=== PATIENT | female | born 1970 | race Caucasian/White ===

== ENCOUNTER 2021-12-25 01:00 | Day surgery (SDC) | payer OTHER, SELFPAY ==
--- NOTE | 2021-12-22 13:42 | SUR.PREOP ---
Report to the Outpatient Waiting Room, entrance under the green pavilion located off [facility], at time 0845 12/25/21. OR Time: 1045 - You and your visitor will be asked a series of questions to screen for COVID 19 for your protection. - Only one visitor is allowed at this time. - The patient visitor is requested to leave or wait in car when not with patient. - A mask is required within the hospital. Patients may have clear liquids (water, carbonated beverages, clear teas, apple juice) until 3 hours prior to surgery with a maximum of 20 ounces. - No food from midnight until time of surgery Take the following medications with a SIP of water the morning of surgery: xanax and if needed oxycodone. Medications to discontinue per physician probiotic Date to take last dose12/22 Please no make-up, nail japanese, hairspray, perfume, deodorant, or body powder the day of surgery. No jewelry (including any body piercings) or valuables the day of surgery, leave them at home. Please take a shower or bath the night before, or the morning of, surgery with an antibacterial soap. Wear comfortable, loose fitting clothing. Children are encouraged to wear pajamas. - Jewelry must be removed prior to entering the operating room. Rings and piercings that are not removed may be cut off. - The hospital will not accept responsibility for valuables. - Please leave all valuables, including medications, at home the day of surgery. If you are going home after surgery, a licensed log driver must drive you home. - NO public transportation without another adult. - We recommend that an adult stay with you for 24 hours following discharge. - We also recommend that you do not drive, make important decision, drink alcoholic beverages, or take any drugs that were not prescribed by your health care provider for at least 24 hours after your discharge time. For Pediatric surgeries, we recommend two adults accompany the child home (only one inside the building at this time). Follow any additional instructions given to you from your surgeon. If you or anyone in your household have experienced Covid symptoms in the past week, please notify your surgeon or the nurse liaison at the phone number below for possible testing. Telephone instructions given to Patient Audrey and asked if any additional questions and then verbalized understanding. Patient advised to call surgeon office or pre surgery nurse liaison [phone] if any additional questions.
[2021-12-22 13:57] VITALS: BMI 32.3
--- NOTE | 2021-12-24 09:56 | PM.IMHP ---
H&P: HPI History of Present Illness Date/Time: 12/24/21 09:56 51-year-old 3 para 1999 female presents for evaluation of abnormality noted on ultrasound. She was seen for well-woman exam 2 months ago at which time she complained of some vague pelvic discomfort and adnexal discomfort. Ultrasound ordered and showed significantly thickened endometrium at 17mm. She also is currently on tamoxifen therapy due to breast cancer though she has not had any abnormal bleeding or any bleeding at all. Her discomfort has resolved but we will proceed with hysteroscopy uterine curettings to remove polyp and/or would ever thickened tissue is in the cavity. 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, had chemotherapy Bronchitis Complication of breast implant Diverticulosis Dizziness Ectopic 1994 Encounter for insertion of mirena IUD 02/01/12 insertion 07/05/12 removal Gall stones High blood cholesterol Intractable low back pain IUD (intrauterine device) in place Lumbar radiculopathy Ovarian mass 2011 Peripheral neuropathy Pneumonia Vertigo Surgical History Surgical History H/O bilateral mastectomy 2014 right (prophylaxis), left cancer with metastasis to lymph nodes H/O hernia repair 2010 History of ankle surgery History of cardiac catheterization History of removal of ovarian cyst 10/27/11 mature cystic teratoma History of salpingectomy 10/27/11 LSO--mature cystic teratoma Hx of breast implants, bilateral 02/06/15 Hx of cholecystectomy 08/14/15 Family History Family History Mother Hypertension Diabetes mellitus Family history of diabetes mellitus in first degree relative Lung tumor Father Family history of diabetes mellitus in first degree relative Family history of heart disease in male family member before age 55 Sibling Family history of malignant neoplasm of cervix sister Other Tonsil cancer maternal aunt Social History Social History Years smoked: 37 Smoking status: Current every day smoker Tobacco type: cigarettes Second hand tobacco smoke exposure: Yes Alcohol intake: current Drinks per week: 6 Substance use: never Substance use type: does not use Living arrangements: with family Additional living arrangements comments: daughter Gender identity (if verbalized by the patient): Female Sexual Orientation (if Verbalized by the Patient): Straight or Heterosexual Spiritual care concerns: No Meds Home Medications and Allergies Home Medications Medication Instructions Recorded Confirmed Type oxycodone-acetaminophen 1 tablet PO Q6H PRN #14 tablet 07/27/19 12/22/21 Rx cyclobenzaprine 10 mg PO Q8H #10 tablet 08/13/19 12/22/21 Rx tamoxifen 20 mg tablet 20 mg PO DAILY 09/24/21 12/22/21 History albuterol sulfate 90 inh INHALATION PRN 12/22/21 12/22/21 History alprazolam 0.5 mg PO TID PRN 12/22/21 12/22/21 History lactobacillus combination no.4 3,000 mmu cells PO DAILY 12/22/21 12/22/21 History [Probiotic] Allergies Allergy/AdvReac Type Severity Reaction Status Date / Time celecoxib [From Celebrex] Allergy Unknown unknown Verified 12/22/21 13:23 tramadol [From Ultram] Allergy Unknown unknown Verified 12/22/21 13:23 Exam Const: General: cooperative, healthy appearing and comfortable Resp: Effort & Inspection: normal respiratory effort Auscultation: clear to auscultation bilaterally Cardio: Rate: regular rate Rhythm: regular rhythm GI: Inspection: normal to inspection Auscultation: normal bowel sounds : Externa
--- NOTE | 2021-12-25 07:23 | WPDHPUPDATE1 ---
History and Physical Update Update Date/Time: 12/25/21 07:23 History and Physical has been reviewed, including an updated exam of the patient. There are NO changes in the patient's condition. Risks, benefits, and alternatives have been discussed and questions answered. Patient agrees to proceed with procedure.
[2021-12-25] MEDS: ACETAMINOPHEN 500 MG TABLET 1000 MG PO (09:28)
[2021-12-25 09:30] VITALS: BP 113/81; PULSE 98; RESP 18; TEMP 36.3; O2SAT 94
[2021-12-25] MEDS: LACTATED RINGERS 1,000 ML 30 ML IV CONT (09:45)
--- NOTE | 2021-12-25 09:58 | WPDANESEPPF ---
Anes - Initial Pre Proc Eval Procedure: Operation Date: 12/25/21 10:45 Proposed Procedures p Hysteroscopy, Dilation and Curettage - Wenceslao Ricardo MD Date/Time: 12/25/21 09:58 Surgeon: Wenceslao Ricardo MD Pre Op Diagnosis: endometrial hyperplasia Patient Data Age: 51 Gender: F Height: 1.68 m Weight: 90.9 kg Allergies Allergy/AdvReac Type Severity Reaction Status Date / Time celecoxib [From Celebrex] Allergy Unknown unknown Verified 12/22/21 13:23 tramadol [From Ultram] Allergy Unknown unknown Verified 12/22/21 13:23 Home Medications Medication Instructions Recorded Confirmed Type oxycodone-acetaminophen 1 tablet PO Q6H PRN #14 tablet 07/27/19 12/22/21 Rx cyclobenzaprine 10 mg PO Q8H #10 tablet 08/13/19 12/22/21 Rx tamoxifen 20 mg tablet 20 mg PO DAILY 09/24/21 12/22/21 History albuterol sulfate 90 inh INHALATION PRN 12/22/21 12/22/21 History alprazolam 0.5 mg PO TID PRN 12/22/21 12/22/21 History lactobacillus combination no.4 3,000 mmu cells PO DAILY 12/22/21 12/22/21 History [Probiotic] Patient hx anesthesia problems: none Family hx anesthesia problems: none Results Review: All pre-operative results and documents have been reviewed as part of the pre-operative evaluation. 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, had chemotherapy Bronchitis Complication of breast implant Diverticulosis Dizziness Ectopic 1994 Encounter for insertion of mirena IUD 02/01/12 insertion 07/05/12 removal Gall stones High blood cholesterol Intractable low back pain IUD (intrauterine device) in place Lumbar radiculopathy Ovarian mass 2011 Peripheral neuropathy Pneumonia Vertigo Surgical History Surgical History H/O bilateral mastectomy 2014 right (prophylaxis), left cancer with metastasis to lymph nodes H/O hernia repair 2011 History of ankle surgery History of cardiac catheterization History of removal of ovarian cyst 10/27/11 mature cystic teratoma History of salpingectomy 10/27/11 LSO--mature cystic teratoma Hx of breast implants, bilateral 02/06/15 Hx of cholecystectomy 08/14/15 Family History Family History Mother Hypertension Diabetes mellitus Family history of diabetes mellitus in first degree relative Lung tumor Father Family history of diabetes mellitus in first degree relative Family history of heart disease in male family member before age 55 Sibling Family history of malignant neoplasm of cervix sister Other Tonsil cancer maternal aunt Social History Social History Years smoked: 37 Smoking status: Current every day smoker Tobacco type: cigarettes Second hand tobacco smoke exposure: Yes Alcohol intake: current Drinks per week: 6 Substance use: never Substance use type: does not use Living arrangements: with family Additional living arrangements comments: daughter Gender identity (if verbalized by the patient): Female Sexual Orientation (if Verbalized by the Patient): Straight or Heterosexual Spiritual care concerns: No Anes - Eval Final PreProcedure Day of Procedure 12/25/21 09:58 Patient weight: obese Heart: regular rate and rhythm Lungs: decreased breath sounds Airway: Mallampati scale class II Neurological: alert and oriented Last oral intake: >/= 8 hours ASA classification: III Emergent: no Anesthetic plan: proceed Anesthesia type and monitoring: general GIVS and standard monitoring Results Review: All pre-operative results and documents have been reviewed as part of the pre-operative evaluation. Informed Consent:
[2021-12-25 11:00] VITALS: BP 110/72; PULSE 80; RESP 20; O2SAT 96
--- NOTE | 2021-12-25 11:01 | W.PM.PROC2 ---
Procedure Note - Detailed Date of Procedure 12/25/21 Pre-op Diagnosis endometrial hyperplasia Post-op Diagnosis Same (With endometrial polyp) Procedure Performed 1. Hysteroscopy 2 polypectomy Surgeon Wenceslao Ricardo MD Anesthesia MAC Indications Endometrial hypertrophy on tamoxifen therapy Findings 1 large endometrial polyp noted the rest the cavity was atrophic Description of Procedure Patient prepped usual manner this procedure. Cervix was dilated the hysteroscope to placed which did reveal findings of polyp as noted above. Using the MyoSure instrument polyp was removed in its entirety. At this point the entire cavity was normal and atrophic. Patient tolerated the procedure well sent to recovery room in stable condition. Estimated Blood Loss 25 Drains No Packing No Pathology Yes Complications No immediate complications Condition Stable Disposition PACU [facility] Billing Surgery - Charge Forward: Surgery Billing
[2021-12-25 11:30] VITALS: BP 109/75; PULSE 71
[2021-12-25] MEDS: fentaNYL CITRATE INJ (*CRX) 100 MCG/2 ML VIAL 25 MCG IV PUSH ×2 (11:40→11:43)
[2021-12-25] MEDS: oxyCODONE HCL (*CRX) 5 MG TAB IR PO (11:40)
[2021-12-25 12:00] VITALS: BP 102/74; PULSE 74; RESP 16
== END 2021-12-25 12:20 | disposition home or self-care (01) ==
PROVIDERS: PCP Family Medicine; Visit Provider Obstetrics & Gynecology
PROC: 0U5B8ZZ Destruction of Endometrium, Via Natural or Artificial Opening Endoscopic (ICD-10-PCS; CPT 58563; principal; 2021-12-25 10:45)
DX: N84.0 Polyp of corpus uteri (principal); E78.00 Pure hypercholesterolemia, unspecified; G62.9 Polyneuropathy, unspecified; F41.9 Anxiety disorder, unspecified; J45.909 Unspecified asthma, uncomplicated; Z85.3 Personal history of malignant neoplasm of breast; Z92.21 Personal history of antineoplastic chemotherapy; Z85.89 Personal history of malignant neoplasm of other organs and systems; Z79.51 Long term (current) use of inhaled steroids; Z79.810 Long term (current) use of selective estrogen receptor modulators (SERMs); F17.210 Nicotine dependence, cigarettes, uncomplicated; E66.9 Obesity, unspecified; Z68.32 Body mass index [BMI] 32.0-32.9, adult
CPT/HCPCS: 58558; 88305; A9270; J2250; J3010; J7030; J7120

== ENCOUNTER 2023-03-02 01:34 | Emergency (ER) | payer OTHER, SELFPAY ==
[2023-03-02] VITALS (18 sets, daily range): BP systolic 97–119; BP diastolic 63–82; PULSE 70–86; RESP 14–21; TEMP 36.6; O2SAT 93–96
--- NOTE | ~2023-03-02 | XR_ITS ---
Clinical Indication: Chest pain PA and lateral views of the chest: Comparison: 07/03/2019 Findings: Stable calcified left upper lobe pulmonary nodule versus excrescence of the anterior left f irst rib. Lungs are otherwise clear. Cardiomediastinal silhouette is within normal limits. Bones and soft tissues are unremarkable. Impression: No significant abnormality seen. Reviewed, dictated and finalized at location . Impression: No significant abnormality seen.
--- NOTE | ~2023-03-02 | CT_ITS ---
Clinical Indication: Chest pain, abdominal pain CT Scan of the Chest, Abdomen, and Pelvis with Contrast: Technique: Contiguous sections were acquired throughout the chest, abdomen, and pelvis after intraven ous administration of 100 cc of Omnipaque 350. Dose reduction technique was used on this scan by beatriz louiseing automated exposure control and iterative reconstruction technique. The dose-length product (DL P) was 1489.01 mGy-cm. COMPARISON: 09/19/2017 Findings: There is no evidence of any significant mediastinal, hilar or axillary lymphadenopathy. The mediastin al soft tissues appear normal. No pulmonary embolus seen. No aortic aneurysm or dissection. There is no evidence of pleural or pericardial effusion. There is a 1.6 cm vague groundglass opacities in the right upper lobe (axial image 41). Probable diffuse fatty infiltration of liver. Cholecystectomy clips are present. The spleen, pancreas , adrenals and kidneys are within normal limits. No evidence of aortic aneurysm. No lymphadenopathy . No bowel obstruction or bowel wall thickening. There normal appendix. Urinary bladder is unremarkable. No adnexal mass seen. No ascites. Impression: 1.6 cm amorphous groundglass opacity in the right upper lobe. Findings could reflect focal pneumonia. Consider follow-up exam as indicated. Probable diffuse fatty infiltration of liver. No other significant findings. Reviewed, dictated and finalized at [facility]. Impression: 1.6 cm amorphous groundglass opacity in the right upper lobe. Findings could re flect focal pneumonia. Consider follow-up exam as indicated. Probable diffuse fatty infiltration of liver. No other significant findings.
--- NOTE | 2023-03-02 01:41 | ECG_ITS ---
Measurements Intervals Verner Rate: 91 P: 70 ND: 157 QRS: 66 QRSD: 97 T: 71 QT: 355 QTc: 438 Interpretive Statements SINUS RHYTHM BASELINE ARTIFACT- I, II, III, AVR, AVL, AVF, V4-V6 NORMAL ECG NO PREVIOUS ECG AVAILABLE FOR COMPARISON Electronically Signed On 03-02-2023 6:40:31 CDT by Augustin Fernandes D.O.
[2023-03-02 02:03] LABS: Basophils Absolute Auto 0.1 K/mm3 (0.0-0.1); Basophils Percent Auto 0.4 % (0.2-1.2); Eosinophils Absolute Auto 0.3 K/mm3 (0-0.3); Eosinophils Percent Auto 2.2 % (0-4.4); Hematocrit 40.4 % (37.0-47.0); Hemoglobin 13.9 g/dL (12.0-15.0); Immature Granulocyte Absolute 0.03 K/mm3 (0.00-0.031); Immature Granulocyte Percent A 0.3 % (0-0.5); Lymphocytes Absolute Auto 2.96 K/mm3 (0.9-3.2); Mean Corpuscular HGB Conc 34.4 g/dl (32-36); Mean Corpuscular Hemoglobin 32.3 pg (26-34); Mean Corpuscular Volume 93.7 fl (80-100); Mean Platelet Volume 9.9 fl (7.4-10.4); Monocytes Absolute Auto 0.8 K/mm3 (0.1-0.6); Monocytes Percent Auto 7.4 % (2.6-8.5); Neutrophils Absolute Auto 7.3 K/mm3 (1.3-6.7); Neutrophils Percent Auto 63.7 % (45.5-73.1); Platelet Count Result 264 k/mm3 (150-375); Red Blood Count 4.31 M/mm3 (4.2-5.4); Red Cell Distribution Width 12.6 % (11.5-14.5); White Blood Count 11.4 K/mm3 (4.5-10.0)
[2023-03-02 02:16] LABS: Alanine Aminotransferase 18 U/L (6-35); Albumin Level 4.1 g/dL (3.5-5.1); Alkaline Phosphatase 73 U/L (38-126); Anion Gap 6 mmol/L (8-16); Aspartate Amino Transferase 20 U/L (14-36); Bilirubin,Total 0.3 mg/dL (0.2-1.3); Blood Urea Nitrogen 12 mg/dL (7-17); Calcium 9.3 mg/dL (8.4-10.2); Carbon Dioxide 29 mmol/L (22-30); Chloride 102 mmol/L (98-107); Estimated CRCL calculation 83 ml/min; Estimated Glomerular Filt Rate > 60; Glucose 115 mg/dL (65-110); Lipase 57 U/L (23-300); Potassium 3.7 mmol/L (3.4-5.0); Sodium 137 mmol/L (137-145)
[2023-03-02 02:24] LABS: INR 0.9; Prothrombin Time 12.4 Seconds (11.1-14.7)
[2023-03-02 02:25] LABS: Partial Thromboplastin Time 29.7 SECONDS (22.3-36.8)
[2023-03-02 02:28] LABS: Troponin I < 0.012 ng/mL (0.000-0.034)
--- NOTE | 2023-03-02 03:19 | ED.CHESTPAIN ---
HPI - Chest Pain General Chief Complaint: Chest Pain Stated Complaint: chest pain Time Seen by Provider: 03/02/23 02:24 History of Present Illness HPI narrative: Is a 53-year-old female with past history of breast cancer and hiatal hernia, who presents emergency department complaining of chest pain. The patient states she was at rest, seated when she felt sudden onset crushing substernal chest pain that radiated to her back and abdomen. At the time her pain was rated 10/10 and lasted approximately 30 minutes. At the time she took her blood pressure and was noted to be in the 130s over 70s with a heart rate in the low 100s. The patient states her normal pressures running in the low 100s. With pain resolution, her pressure decreased to the 100s over 70s with a heart rate in the 80s. She denies any recent trauma but notes she did have some bilateral lower extremity weakness while experiencing the pain. Related Data Home Medications Medication Instructions Recorded Confirmed albuterol sulfate 90 mcg/actuation 90 inh inhalation PRN 12/22/21 02/01/23 aerosol inhaler alprazolam 0.5 mg tablet 0.5 mg PO TID PRN Anxiety 12/22/21 02/01/23 Allergies Allergy/AdvReac Type Severity Reaction Status Date / Time celecoxib [From Celebrex] Allergy Unknown unknown Verified 02/01/23 10:07 tramadol [From Ultram] Allergy Unknown unknown Verified 02/01/23 10:07 Review of Systems Review of Systems: CONSTITUTIONAL: Denies fever, chills, or sweats. CARDIOVASCULAR: Chest pain denies palpitations, or edema. RESPIRATORY: Denies cough or dyspnea. GASTROINTESTINAL: Abdominal pain, nausea denies vomiting, or diarrhea. GENITOURINARY: Denies dysuria or hematuria. SKIN: Denies rash or itching. MUSCULOSKELETAL: Back pain denies joint pain, or myalgia. NEUROLOGIC: Denies headache, numbness, dizziness, or weakness. PSYCHIATRIC: Denies anxiety or depression. 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, had chemotherapy Bronchitis Complication of breast implant Diverticulosis Dizziness Ectopic 1994 Encounter for insertion of mirena IUD 02/01/12 insertion 07/05/12 removal Gall stones High blood cholesterol Intractable low back pain IUD (intrauterine device) in place Lumbar radiculopathy Ovarian mass 2011 Peripheral neuropathy Pneumonia Vertigo Surgical History Surgical History H/O bilateral mastectomy 2014 right (prophylaxis), left cancer with metastasis to lymph nodes H/O hernia repair 2010 History of ankle surgery History of cardiac catheterization History of gynecological procedure (12/25/21) Hscope D&C / Polypectomy History of removal of ovarian cyst 10/27/11 mature cystic teratoma History of salpingectomy 10/27/11 LSO--mature cystic teratoma Hx of breast implants, bilateral 02/06/15 Hx of cholecystectomy 08/14/15 Family History Family History Mother Hypertension Diabetes mellitus Family history of diabetes mellitus in first degree relative Lung tumor Father Family history of diabetes mellitus in first degree relative Family history of heart disease in male family member before age 55 Sibling Family history of malignant neoplasm of cervix sister Other Tonsil cancer maternal aunt Social History Social History Years smoked: 37 Smoking status: Current every day smoker Tobacco type: cigarettes Second hand tobacco smoke exposure: Yes Alcohol intake: current Drinks per week: 6 Substance use: never Substance use type: does not use Lack of Transportation: No Lack of Food: Never True Current Talha
[2023-03-02] MEDS: BELLADONNA ALK/PHENOB ELIX 10 ML, MAG HYDROX/ALUMINUM HYD/SIMETH 30 ML, LIDOCAINE HCL 2... PO (03:31)
[2023-03-02] MEDS: ONDANSETRON INJ 4 MG/2 ML VIAL IV PUSH (03:32)
[2023-03-02] MEDS: DICYCLOMINE HCL 10 MG CAPSULE PO (03:32)
[2023-03-02 05:15] LABS: Troponin I < 0.012 ng/mL (0.000-0.034)
== END 2023-03-02 05:49 | disposition home or self-care (01) ==
PROVIDERS: Emergency Provider Preventive Medicine Aerospace Medicine; PCP Family Medicine
DX: R07.89 Other chest pain (principal); J45.909 Unspecified asthma, uncomplicated; E78.00 Pure hypercholesterolemia, unspecified; G62.9 Polyneuropathy, unspecified; F41.9 Anxiety disorder, unspecified; F17.210 Nicotine dependence, cigarettes, uncomplicated; Z85.3 Personal history of malignant neoplasm of breast; Z92.21 Personal history of antineoplastic chemotherapy; Z87.01 Personal history of pneumonia (recurrent); Z90.49 Acquired absence of other specified parts of digestive tract; Z98.82 Breast implant status; R91.8 Other nonspecific abnormal finding of lung field
CPT/HCPCS: 36415; 71046; 71275; 74174; 80053; 83690; 84484; 85025; 85610; 85730; 93005; 96374; 99284; A9270; J2405; Q9967

== ENCOUNTER 2024-01-18 09:53 | Outpatient (CLI) | payer OTHER, SELFPAY ==
--- NOTE | ~2024-01-18 | US_ITS ---
Pelvic ultrasound. Clinical History: Pelvic pain Technique: Realtime transabdominal and transvaginal scanning of the pelvis was performed. Color flow Doppler and Doppler spectral analysis were performed. Findings: The uterus is anteverted, and measures 9.3 x 5.4 x 6.8 cm. The endometrial stripe has a th ickness of approximately 10 mm. Hypoechoic ill-defined posterior wall fibroid measures 1.6 cm in diam eter.. The right ovary measures 2.6 x 2.0 x 1.3 cm. There is a 4 mm hyperechoic focus within the right ovary .. The left ovary is not visualized. No significant left ovarian or adnexal mass is seen. There is no evidence of free fluid in the cul de sac. Impression: 4 mm hyperechoic focus in the right ovary could reflect the presence of a very small dermoid. Small uterine fibroid, as above. Left ovary not seen. Reviewed, dictated and finalized at [facility]. Impression: 4 mm hyperechoic focus in the right ovary could reflect the presence of a very small dermoid. Small uterine fibroid, as above. Left ovary not seen.
== END 2024-01-18 09:54 | disposition home or self-care (01) ==
PROVIDERS: PCP Family Medicine; Visit Provider Obstetrics & Gynecology
DX: R30.0 Dysuria (principal); R10.2 Pelvic and perineal pain; D25.9 Leiomyoma of uterus, unspecified
CPT/HCPCS: 76830; 76856; 87086

== ENCOUNTER 2024-10-05 19:25 | Emergency (ER) | payer OTHER, SELFPAY ==
[2024-10-05 19:30] VITALS: BP 108/58; PULSE 93; RESP 20; TEMP 36.8; O2SAT 95
[2024-10-05 21:32] VITALS: BP 108/70; PULSE 105; RESP 20; TEMP 36.7; O2SAT 95
[2024-10-05 21:51] LABS: Basophils Percent Auto 0.3 % (0.2-1.2); Eosinophils Absolute Auto 0.1 K/mm3 (0-0.3); Hematocrit 44.1 % (37.0-47.0); Hemoglobin 15.1 g/dL (12.0-15.0); Immature Granulocyte Absolute 0.05 K/mm3 (0.00-0.031); Immature Granulocyte Percent A 0.5 % (0-0.5); Lymphocytes Absolute Auto 0.75 K/mm3 (0.9-3.2); Mean Corpuscular HGB Conc 34.2 g/dl (32-36); Mean Corpuscular Hemoglobin 32.1 pg (26-34); Mean Corpuscular Volume 93.8 fl (80-100); Monocytes Absolute Auto 0.9 K/mm3 (0.1-0.6); Monocytes Percent Auto 9.4 % (2.6-8.5); Neutrophils Absolute Auto 7.6 K/mm3 (1.3-6.7); Neutrophils Percent Auto 80.8 % (45.5-73.1); Platelet Count Result 243 k/mm3 (150-375); Red Cell Distribution Width 12.8 % (11.5-14.5); White Blood Count 9.4 K/mm3 (4.5-10.0)
[2024-10-05 22:02] LABS: Alanine Aminotransferase 17 U/L (6-35); Albumin Level 4.3 g/dL (3.5-5.1); Alkaline Phosphatase 71 U/L (38-126); Anion Gap 8 mmol/L (4-12); Aspartate Amino Transferase 19 U/L (14-36); Bilirubin,Total 0.5 mg/dL (0.2-1.3); Blood Urea Nitrogen 8 mg/dL (7-17); Calcium 9.8 mg/dL (8.4-10.2); Carbon Dioxide 27 mmol/L (22-30); Chloride 101 mmol/L (98-107); Estimated CRCL calculation 108 ml/min; Estimated Glomerular Filt Rate > 60; Glucose 105 mg/dL (65-110); Lipase 58 U/L (23-300); Potassium 3.8 mmol/L (3.4-5.0); Sodium 136 mmol/L (137-145)
[2024-10-05 22:05] LABS: INR 0.9; Partial Thromboplastin Time 28.6 Seconds (22.3-36.8); Prothrombin Time 12.9 Seconds (11.1-14.7)
[2024-10-05 22:14] LABS: Troponin I < 0.012 ng/mL (0.000-0.034)
[2024-10-05 23:09] LABS: Influenza A QL RT-PCR Negative (Negative); Influenza B QL RT-PCR Negative (Negative); RSV RNA, RT-PCR Negative (Negative); SARS-CoV-2 RNA PCR Positive (Negative)
[2024-10-06 01:34] VITALS: BP 107/72; PULSE 101; RESP 20; TEMP 37.8; O2SAT 98
--- NOTE | 2024-10-06 03:04 | ED.GENADULT ---
HPI - General Adult General Chief complaint: Unspecified Stated complaint: chest pain/ SOB Time Seen by Provider: 10/06/24 02:25 History of Present Illness HPI narrative: Patient is a 54-year-old female who presents to the ER with complaints of abdominal pain, dizziness, nausea, weakness. She reports her symptoms started around noon on October 05, 2024. She reports they started with rectal pain that radiated toward her vagina. Patient reports around 1:00 p.m. she still the need to have a bowel movement but was only able to produce flatulence. She endorses a history of asthma and reports she has been slightly short of breath. Patient reports she has an albuterol inhaler at home which she has been using more of lately. At the time of examination she is denying chest pain, wheezing, back pain, urinary symptoms. Related Data Home Medications ?Medication ?Instructions ?Recorded ?Confirmed ?Last Taken ?Type albuterol sulfate 90 mcg/actuation 90 inh inhalation PRN 12/22/21 02/01/23 Unknown History aerosol inhaler alprazolam 0.5 mg tablet 0.5 mg PO TID PRN Anxiety 12/22/21 02/01/23 Unknown History Allergies Allergy/AdvReac Type Severity Reaction Status Date / Time celecoxib (From Celebrex) Allergy Unknown unknown Verified 02/08/24 14:51 tramadol (From Ultram) Allergy Unknown unknown Verified 02/08/24 14:51 Review of Systems Review of Systems: All systems reviewed & are unremarkable except as noted in HPI and below PMFSH Past Medical History Medical History Complication of breast implant Encounter for insertion of mirena IUD 02/01/12 insertion 07/05/12 removal Ectopic 1994 High blood cholesterol Ovarian mass 2012 Dizziness Diverticulosis Lumbar radiculopathy Intractable low back pain Gall stones Pneumonia Bronchitis Asthma Vertigo Peripheral neuropathy Breast cancer 2013 left lobular cancer/ductal cancer 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, had chemotherapy Anxiety Back injury IUD (intrauterine device) in place Surgical History Surgical History History of gynecological procedure (12/25/21) Hscope D&C / Polypectomy History of ankle surgery Hx of cholecystectomy 08/14/15 Hx of breast implants, bilateral 02/06/15 History of salpingectomy 10/27/11 LSO--mature cystic teratoma History of cardiac catheterization H/O hernia repair 2010 History of removal of ovarian cyst 10/27/11 mature cystic teratoma H/O bilateral mastectomy 2013 right (prophylaxis), left cancer with metastasis to lymph nodes Family History Family History Mother Hypertension Diabetes mellitus Family history of diabetes mellitus in first degree relative Lung tumor Father Family history of heart disease in male family member before age 55 Family history of diabetes mellitus in first degree relative Sibling Family history of malignant neoplasm of cervix sister Other Tonsil cancer maternal aunt Social History Social History Years smoked: 37 Smoking status: Current every day smoker Tobacco type: cigarettes Second hand tobacco smoke exposure: Yes Alcohol intake: current Drinks per week: 6 Substance use: never Substance use type: does not use Lack of Transportation: No Lack of Food: Never True Current Housing: I Have Housing Concerned About Future Housing: No Difficulty Paying Gas/Electric Bills: No Difficulty Paying for Meds: No Currently Unemployed: No Education: High School Diploma/GED Difficulty w/ Childcare or Family Care: No Living arrangements: with family Additional living arrangements comments: daughter Occupation/Education: unemployed Gender identity (if verbalized by the patient): Female Sexual Orientation (if Verbalized by the Patient): Straight or Heterosexual Spiritual care concerns: No Exam Narrative: GENERAL: Well appearing, well-nourished, non-toxic, in mild distress d/t I need to burp. HEAD: Normocephalic, atraumatic. NECK: Supple. No adenopathy, no masses. RESPIRATORY: Airway patent, respirations nonlabored. Clear to auscultation bilaterally, no rales, rhonchi, wheezing. CARDIOVASCULAR: Regular rate and rhythm without murmurs, rubs, or gallops. Peripheral pulses 2+ and equal bilaterally. ABDOMINAL: Soft, nontender with palpation, + distended, no hepatosplenomegaly. Normoactive BS. MUSCULOSKELETAL: Moves all extremities. Strength/ROM intact without gross deformities. SKIN: Warm, dry, normal color. No rashes. NEURO: A&O X3. Speech clear. Cranial nerves II-XII grossly intact. Steady gait. No ataxic movements. PSYCHIATRIC: Irritable during conversation, flat affect Course Vital Signs Vital signs: Vital Signs Temperature 36.8 C 10/05/24 19:30 Pulse Rate 93 10/05/24 19:30 Respiratory Rate 20 10/05/24 19:30 Blood Pressure 108/58 L 10/05/24 19:30 Pulse Oximetry 95 10/05/24 19:30 Temperature 37.8 C H 10/06/24 01:34 Pulse Rate 101 H 10/06/24 01:34 Respiratory Rate 20 10/06/24 01:34 Blood Pressure 107/72 10/06/24 01:34 Pulse Oximetry 98 10/06/24 01:34 Medical Decision Making MDM Narrative Medical decision making narrative: Patient is a 54-year-old female who presents to the ER with complaints of abdominal pain, dizziness, nausea, weakness. She reports her symptoms started around noon on October 05, 2024. She reports they started with rectal pain that radiated toward her vagina. Patient reports around 1:00 p.m. she still the need to have a bowel movement but was only able to produce flatulence. She endorses a history of asthma and reports she has been slightly short of breath. Patient reports she has an albuterol inhaler at home which she has been using more of lately. At the time of examination she is denying chest pain, wheezing, back pain, urinary symptoms. Labs Ordered: CBC, CMP, troponin, COVID/flu/RSV, lipase, INR, PTT, UA (per pt's request) Imaging Ordered: chest x-ray Medications Ordered: GI cocktail, Toradol 30mg IM, Tylenol PO, GI cocktail, Bisacodyl PO Results: Patient's chest x-ray indicates No acute cardiopulmonary pathology. Diagnosis: COVID-19, upper respiratory infection Risks: HEART score: low risk HEART Pathway for Early Discharge in Acute Chest Pain from [facility] on 10/06/2024 All calculations should be rechecked by clinician prior to use RESULT SUMMARY: 2 points HEART Pathway Score Low risk 0.9-1.7% 30-day MACE Repeat troponin at 3 hours and if negative, discharge home with outpatient follow-up. INPUTS: History ?> 0 = Slightly suspicious EKG ?> 0 = Normal Age ?> 1 = 45-64 Risk factors ?> 1 = 1-2 risk factors Initial troponin ?> 0 = <=Normal limit Consults: None necessary Patient Education/Shared MDM: Results shared with patient. She endorses improvement following medication administration. Patient strongly advised to maintain hydration status upon discharge and follow-up with her PCP as soon as possible. She will be discharged home with prescription for a new albuterol inhaler and Bisacodyl, per her request. Strict return precautions provided. Patient verbalized understanding is in agreement with plan. Vital signs stable at time of discharge. All questions answered. Differential Diagnosis Differential Diagnosis: COVID, influenza, GERD, pneumonia Vital Signs Vital Signs: Vital Signs Temperature 36.8 C 10/05/24 19:30 Pulse Rate 93 10/05/24 19:30 Respiratory Rate 20 10/05/24 19:30 Blood Pressure 108/58 L 10/05/24 19:30 Pulse Oximetry 95 10/05/24 19:30 Temperature 37.8 C H 10/06/24 01:34 Pulse Rate 101 H 10/06/24 01:34 Respiratory Rate 20 10/06/24 01:34 Blood Pressure 107/72 10/06/24 01:34 Pulse Oximetry 98 10/06/24 01:34 Lab Data Lab results reviewed: Yes I reviewed the patient's lab results. 10/05/24 21:41 10/05/24 21:41 Labs: Lab Results 10/05/24 10/05/24 Range/Units 21:41 22:28 WBC 9.4 (4.5-10.0) K/mm3 RBC 4.70 (4.2-5.4) M/mm3 Hgb 15.1 H (12.0-15.0) g/dL Hct 44.1 (37.0-47.0) % MCV 93.8 (80-100) fl MCH 32.1 (26-34) pg MCHC 34.2 (32-36) g/dl RDW 12.8 (11.5-14.5) % Plt Count 243 (150-375) k/mm3 MPV 10.0 (7.4-10.4) fl Immature Gran % (Auto) 0.5 (0-0.5) % Neut % (Auto) 80.8 H (45.5-73.1) % Lymph % (Auto) 8.0 L (18.3-44.2) % Reeves % (Auto) 9.4 H (2.6-8.5) % Eos % (Auto) 1.0 (0-4.4) % Baso % (Auto) 0.3 (0.2-1.2) % Lymph # (Auto) 0.75 L (0.9-3.2) K/mm3 Reeves # (Auto) 0.9 H (0.1-0.6) K/mm3 Eos # (Auto) 0.1 (0-0.3) K/mm3 Baso # (Auto) 0.0 (0.0-0.1) K/mm3 Abs Immat Gran (auto) 0.05 H (0.00-0.031) K/mm3 Absolute Neuts (auto) 7.6 H (1.3-6.7) K/mm3 Absolute Nucleated RBC 0.000 (0.0-0.012) K/mm3 Nucleated RBC % 0.0 (0.0-0.2) % PT 12.9 (11.1-14.7) Seconds INR 0.9 APTT 28.6 (22.3-36.8) Seconds Sodium 136 L (137-145) mmol/L Potassium 3.8 (3.4-5.0) mmol/L Chloride 101 (98-107) mmol/L Carbon Dioxide 27 (22-30) mmol/L Anion Gap 8 (4-12) mmol/L BUN 8 (7-17) mg/dL Creatinine 0.57 L (0.7-1.0) mg/dL Estim Creat Clear Calc 108 ml/min Estimated GFR > 60 (59 - ) Glucose 105 (65-110) mg/dL Calcium 9.8 (8.4-10.2) mg/dL Total Bilirubin 0.5 (0.2-1.3) mg/dL AST 19 (14-36) U/L ALT 17 (6-35) U/L Alkaline Phosphatase 71 (38-126) U/L Troponin I < 0.012 (0.000-0.034) ng/mL Total Protein 8.0 (6.3-8.2) g/dL Albumin 4.3 (3.5-5.1) g/dL Lipase 58 (23-300) U/L Influenza A (RT-PCR) Negative (Negative) Influenza B (RT-PCR) Negative (Negative) RSV (RT-PCR) Negative (Negative) SARS-CoV-2 RNA (RT-PCR) Positive A (Negative) Imaging Data Attestation: I personally reviewed and interpreted this imaging study as follows: Radiologist's impression: Impressions Chest X-Ray 10/05/24 22:10 IMPRESSION: No acute cardiopulmonary pathology. Abnormal Labs 10/05/24 10/05/24 21:41 22:28 Hgb 15.1 H Neut % (Auto) 80.8 H Lymph % (Auto) 8.0 L Reeves % (Auto) 9.4 H Lymph # (Auto) 0.75 L Reeves # (Auto) 0.9 H Abs Immat Gran (auto) 0.05 H Absolute Neuts (auto) 7.6 H Sodium 136 L Creatinine 0.57 L SARS-CoV-2 RNA (RT-PCR) Positive A Discharge Plan Discharge Clinical Impression: Upper respiratory infection, COVID-19 Patient Disposition: Home, Self-Care Condition: Stable Instructions: Antibiotic Form Additional Instructions: Please return to the ER with an worsening symptoms. Follow-up with primary care provider in the next 2-3 days. Take all medications as prescribed. Patient Language: Macedonian Prescriptions: New albuterol sulfate [Ventolin HFA] 90 mcg/actuation HFA aerosol inhaler 2 puff inhalation QID PRN (Reason: shortness of breath or wheezing) Qty: 8.5 0RF bisacodyl 5 mg tablet,delayed release (DR/EC) 5 mg PO ONCE Qty: 10 0RF No Action oxycodone-acetaminophen 5-325 mg tablet 1 tablet PO Q6H PRN (Reason: pain) Qty: 14 0RF cyclobenzaprine 10 mg tablet 10 mg PO Q8H Qty: 10 0RF albuterol sulfate 90 mcg/actuation HFA aerosol inhaler 90 inh INHALATION PRN alprazolam 0.5 mg tablet 0.5 mg PO TID PRN (Reason: Anxiety) ibuprofen 600 mg tablet 600 mg PO TID Qty: 20 0RF Follow-up/Referrals: Harms,Marlon Arroyo M.D. [Primary Care Provider] - Time of Disposition: 03:35
[2024-10-06] MEDS: ACETAMINOPHEN 500 MG TABLET 1000 MG PO (03:09)
[2024-10-06] MEDS: BELLADONNA ALK/PHENOB ELIX 10 ML, MAG HYDROX/ALUMINUM HYD/SIMETH 30 ML, LIDOCAINE 2% VI... PO (03:10)
[2024-10-06] MEDS: KETOROLAC 30 MG/ML VIAL (*BKC) IM (03:14)
[2024-10-06] MEDS: BISACODYL 5 MG TABLET EC PO (03:39)
[2024-10-06 04:09] VITALS: BP 144/80; PULSE 76; RESP 16; O2SAT 99
== END 2024-10-06 04:09 | disposition home or self-care (01) ==
PROVIDERS: Emergency Medicine; Student in an Organized Health Care Education/Training Program; Emergency Provider Registered Nurse; PCP Family Medicine
DX: U07.1 COVID-19 (principal); J06.9 Acute upper respiratory infection, unspecified; J45.909 Unspecified asthma, uncomplicated; E78.00 Pure hypercholesterolemia, unspecified; G62.9 Polyneuropathy, unspecified; Z87.01 Personal history of pneumonia (recurrent); Z85.3 Personal history of malignant neoplasm of breast; Z85.79 Personal history of other malignant neoplasms of lymphoid, hematopoietic and related tissues; Z92.21 Personal history of antineoplastic chemotherapy; Z90.49 Acquired absence of other specified parts of digestive tract; Z90.79 Acquired absence of other genital organ(s); Z90.13 Acquired absence of bilateral breasts and nipples; R00.0 Tachycardia, unspecified
CPT/HCPCS: 36415; 71046; 80053; 83690; 84484; 85025; 85610; 85730; 87637; 93005; 96372; 99284; A9270; J1885

== ENCOUNTER 2025-01-29 15:17 | Outpatient (CLI) | payer OTHER, SELFPAY ==
[2025-01-29 15:44] LABS: Hematocrit 43.8 % (37.0-47.0); Hemoglobin 14.7 g/dL (12.0-15.0); Mean Corpuscular HGB Conc 33.6 g/dl (32-36); Mean Corpuscular Hemoglobin 31.1 pg (26-34); Mean Corpuscular Volume 92.8 fl (80-100); Mean Platelet Volume 9.6 fl (7.4-10.4); Platelet Count Result 275 k/mm3 (150-375); Red Blood Count 4.72 M/mm3 (4.2-5.4); Red Cell Distribution Width 12.8 % (11.5-14.5); White Blood Count 10.5 K/mm3 (4.5-10.0)
== END 2025-01-29 15:18 | disposition home or self-care (01) ==
LOC: ANHSURGERY 15:21
PROVIDERS: PCP Family Medicine; Visit Provider Obstetrics & Gynecology
DX: N83.201 Unspecified ovarian cyst, right side (principal); Z01.818 Encounter for other preprocedural examination
CPT/HCPCS: 36415; 85027; 86850; 86900; 86901

== ENCOUNTER 2025-02-01 00:24 | Day surgery (SDC) | payer OTHER, SELFPAY ==
[2025-01-29 10:28] VITALS: BMI 32.8
--- NOTE | 2025-01-29 10:29 | PC.NURSE ---
Report to the Outpatient Waiting Room, entrance under the green pavilion located off [facility], at time _0630_ on date _[id number]_. Planned Procedure Time: _0830_.? Time changes happen often and if your time is changed the preop area will call you the afternoon before. - You and your visitor will be asked to self-screen and do not enter if you have any COVID symptoms. Please call surgeon if you need to reschedule. - A mask is optional within the hospital at this time. Patients may have clear liquids (water, carbonated beverages, clear teas, apple juice) until 3 hours prior to surgery with a maximum of 20 ounces. - No food from midnight until time of surgery and no smoking, or chewing tobacco (or any form of nicotine). No chewing gum, candy or mints. Take only the following medications with a SIP of water on the morning of surgery: __Xanax and If needed Albuterol.____ DO NOT STOP ANY OF YOUR OTHER PRESCRIPTION MEDICATIONS PRIOR TO SURGERY EXCEPT THE FOLLOWING Hold all vitamins and supplements for 3 days per anesthesiologist. Medications to discontinue per physician Date to take last dose_Stop now___ Please no make-up, nail tristanian, hairspray, perfume, deodorant, or body powder the day of surgery.? No jewelry (including any body piercings) or valuables the day of surgery, leave them at home.? Please take a shower or bath the night before, or the morning of, surgery with an antibacterial soap.? Wear comfortable, loose fitting clothing.? - Jewelry must be removed prior to entering the operating room.? Rings and piercings that are not removed may be cut off. - The hospital will not accept responsibility for valuables.? - Please leave all valuables, including medications, at home the day of surgery. If you are going home after surgery, a licensed ready mix truck driver must drive you home.? - NO public transportation without another adult if you receive anesthesia. - We recommend that an adult stay with you for 24 hours following discharge. - We also recommend that you do not drive, make important decision, drink alcoholic beverages, or take any drugs that were not prescribed by your health care provider for at least 24 hours after your discharge time. Follow any additional instructions given to you from your surgeon. Telephone instructions given to _November__and asked if any additional questions and then verbalized understanding. Patient advised to call surgeon office or pre surgery nurse liaison [phone] if any additional questions.
[2025-02-01] VITALS (13 sets, daily range): BP systolic 110–147; BP diastolic 57–105; PULSE 74–95; RESP 14–18; TEMP 35.9–36.9; O2SAT 88–97
--- NOTE | 2025-02-01 06:49 | WPDHPUPDATE1 ---
History and Physical Update Update Date/Time: 02/01/25 06:49 History and Physical has been reviewed, including an updated exam of the patient. There are NO changes in the patient's condition. Risks, benefits, and alternatives have been discussed and questions answered. Patient agrees to proceed with procedure.
[2025-02-01] MEDS: ACETAMINOPHEN 500 MG TABLET 1000 MG PO (07:00)
[2025-02-01] MEDS: LACTATED RINGERS 1,000 ML 30 ML IV CONT (07:05)
--- NOTE | 2025-02-01 08:59 | P.PNAN_ITS ---
Anes - Initial Pre Proc Eval Procedure: Operation Date: 02/01/25 08:30 Proposed Procedures p Robotic Assisted Laparoscopic Right Oophorectomy - Wenceslao Ricardo MD Date/Time: 02/01/25 08:59 Surgeon: Wenceslao Ricardo MD Pre Op Diagnosis: right ovarian mass Patient Data Age: 54 Gender: F Height: 1.66 m Weight: 91.35 kg Last Vital Signs Temp 35.9 C L 02/01/25 06:40 Pulse 95 02/01/25 06:40 Resp 18 02/01/25 06:40 BP 135/105 H 02/01/25 06:40 Pulse Ox 94 02/01/25 07:16 O2 Del Method Room Air 02/01/25 07:16 Allergies Allergy/AdvReac Type Severity Reaction Status Date / Time celecoxib (From Celebrex) Allergy Unknown unknown Verified 01/29/25 10:08 tramadol (From Ultram) Allergy Unknown unknown Verified 01/29/25 10:08 Home Medications ?Medication ?Instructions ?Recorded ?Confirmed ?Type cyclobenzaprine 10 mg tablet 10 mg PO Q8H #10 tabs 08/13/19 01/29/25 Rx alprazolam 0.5 mg tablet 0.5 mg PO TID PRN Anxiety 12/22/21 01/29/25 History albuterol sulfate 90 mcg/actuation 2 puff inhalation QID PRN 10/06/24 01/29/25 Rx aerosol inhaler (Ventolin HFA) shortness of breath or wheezing #8.5 grams bisacodyl 5 mg tablet,delayed 5 mg PO ONCE #10 tabs 10/06/24 01/29/25 Rx release ondansetron HCl 4 mg tablet 4 mg PO Q8H 01/17/25 01/29/25 History albuterol sulfate 2.5 mg/3 mL 2.5 mg inhalation Q6H PRN 01/29/25 01/29/25 History (0.083 %) solution for nebulization shortness of breath or wheezing digestive enzymes 1 cap PO .tidac 01/29/25 01/29/25 History krill oil 500 mg capsule 1,000 mg PO DAILY 01/29/25 01/29/25 History lactobacillus combo no.11 15 1 cap PO DAILY 01/29/25 01/29/25 History billion cell sprinkle capsule (Probiotic) loratadine 10 mg tablet 10 mg PO Q24H PRN allergy symptoms 01/29/25 01/29/25 History oxycodone 5 mg tablet 5 mg PO Q6H PRN pain 01/29/25 01/29/25 History sennosides 8.6 mg tablet (senna) 17.2 mg PO HS 01/29/25 01/29/25 History Patient hx anesthesia problems: none Family hx anesthesia problems: none Results Review: All pre-operative results and documents have been reviewed as part of the pre- operative evaluation. 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, had chemotherapy Anxiety Back injury IUD (intrauterine device) in place Surgical History Surgical History History of gynecological procedure (12/25/21) Hscope D&C / Polypectomy History of ankle surgery Hx of cholecystectomy 08/14/15 Hx of breast implants, bilateral 02/06/15 History of salpingectomy 10/27/11 LSO--mature cystic teratoma History of cardiac catheterization H/O hernia repair 2010 History of removal of ovarian cyst 10/27/11 mature cystic teratoma H/O bilateral mastectomy 2013 right (prophylaxis), left cancer with metastasis to lymph nodes Family History Family History Mother Hypertension Diabetes mellitus Family history of diabetes mellitus in first degree relative Lung tumor Father Family history of heart disease in male family member before age 55 Family history of diabetes mellitus in first degree relative Sibling Family history of malignant neoplasm of cervix sister Other Tonsil cancer maternal aunt Social History Social History Smoking packs per day: 1 Smoking cigarettes per day: 20.0 Years smoked: 35 Smoking pack-years: 35.00 Smoking status: Current every day smoker Tobacco type: cigarettes Second hand tobacco smoke exposure: Yes Alcohol intake: current Drinks per week: 10 Substance use: never Substance use type: does not use Do You Feel Safe in your Home?: Yes Lack of Transportation: No Lack of Food: Never True Current Housing: I Have Housing Concerned About Future Housing: No Difficulty Paying Gas/Electric Bills: No Difficulty Paying for Meds: No Currently Unemployed: No Education: High School Diploma/GED Difficulty w/ Childcare or Family Care: No Living arrangements: with family Additional living arrangements comments: daughter Occupation/Education: unemployed Gender identity (if verbalized by the patient): Female Sexual Orientation (if Verbalized by the Patient): Straight or Heterosexual Spiritual care concerns: No Anes - Eval Final PreProcedure Day of Procedure 02/01/25 08:59 Patient weight: obese Heart: regular rate and rhythm Lungs: decreased breath sounds Airway: Mallampati scale class II Neurological: alert and oriented Last oral intake: >/= 8 hours ASA classification: III Emergent: no Anesthetic plan: proceed Anesthesia type and monitoring: general ETT and standard monitoring Results Review: All pre-operative results and documents have been reviewed as part of the pre- operative evaluation. Informed Consent: The patient's anesthetic plan and its attendant risks and benefits were discussed with the patient/family/POA. Questions were solicited and answers provided to the satisfaction of the patient/family/POA.
--- NOTE | 2025-02-01 09:42 | S_PTH ---
PATIENT: TitoAudrey Mariya LOC: [facility] U#:[id number] AGE/SX: 54/F ROOM: RE02/01/[address]: Wenceslao Ricardo MD : 1970 BED: DIS: 02/01/2025 SPEC #: [id number] RECD: 02/01/25 11:27 STATUS: OCTAVIO REEric #: [id number] FIFI: 02/01/25 09:[address]: Wenceslao Ricardo DEPT: [facility] Surgical RECD BY: Caridad Guillaume ENTERED: 02/01/25 11:27 SP TYPE: Surgical OTHR DR: Marlon Velasquez, MJudy Tissues: A - Ovary Procedures: Hematoxylin and Eosin Stain Gross and Microscopic Level 4
--- NOTE | 2025-02-01 09:58 | W.PM.PROC2 ---
Procedure Note - Detailed Date of Procedure 02/01/25 Pre-op Diagnosis right ovarian mass Post-op Diagnosis Same Procedure Performed Robotic assisted right salpingo oophorectomy Surgeon Wenceslao Ricardo MD Anesthesia General Findings Upon entry into the abdominal cavity minimal adhesions were noted. Uterus tubes ovaries without significant abnormality other than the right ovarian cyst which was approximately 1cm. Description of Procedure Patient prepped and draped usual manner for this procedure. Left upper quadrant laparoscopic trocar was placed under direct visualization and gas was used to infiltrate. No significant adhesions were noted in the areas were trocars were needed to be placed and these were then placed under direct visualization. Patient was placed in Trendelenburg position and visualization uterus tubes and ovaries were noted. Trocars were then attached to the de Ethan system and instruments were placed again under direct visualization. Surgeon moved to the console. Using the bipolar cautery the infundibulopelvic ligament and utero-ovarian ligament cauterized and scissors were used to then cut to separate the tube and ovary from its blood supply and the uterus. Specimens placed in Endo-Catch bag and removed without difficulty. There was no significant bleeding and Gill was placed empirically over the incision site. Also with no ureter was well of the operative field prior to any cautery or cutting being performed. Gas was then allowed to escape and incisions were approximated without difficulty. Patient was sent to recovery in stable condition. Estimated Blood Loss 10 Drains No Packing No Pathology Yes Complications No immediate complications Condition Stable Disposition PACU [facility] Billing Surgery - Charge Forward: Surgery Billing
[2025-02-01] MEDS: fentaNYL CITRATE INJ (*CRX) 100 MCG/2 ML VIAL 25 MCG IV PUSH ×4 (10:47→11:01)
[2025-02-01] MEDS: oxyCODONE HCL (*CRX) 5 MG TAB IR PO (12:15)
== END 2025-02-01 12:52 | disposition home or self-care (01) ==
PROVIDERS: PCP Family Medicine; Visit Provider Obstetrics & Gynecology
PROC: 8E0W4CZ Robotic Assisted Procedure of Trunk Region, Percutaneous Endoscopic Approach (ICD-10-PCS; CPT 49320; principal; 2025-02-01 08:30)
DX: D27.0 Benign neoplasm of right ovary (principal); N83.11 Corpus luteum cyst of right ovary; F17.210 Nicotine dependence, cigarettes, uncomplicated; E66.9 Obesity, unspecified; Z68.33 Body mass index [BMI] 33.0-33.9, adult
CPT/HCPCS: 58661; 88305; A9270; J1100; J2250; J2270; J2405; J2704; J3010; J7030; J7120

== ENCOUNTER 2025-03-28 10:01 | Outpatient (CLI) | payer OTHER, SELFPAY ==
--- NOTE | ~2025-03-28 | US_ITS ---
EXAMINATION: US axilla LT HISTORY: 55-year-old woman with a personal history of breast cancer diagnosed at age 42, post bilateral mastectomy with reconstruction and subsequent revision presents with a history of left axillary pain for diagnostic ultrasound. High resolution left axillary ultrasound was performed. COMPARISON: None. Reference is made to a CT examination of the chest performed 10/17/2024 and dating back to 03/02/2023 demonstrating retropectoral right breast implant with an extra muscular left breast implant. FINDINGS: ULTRASOUND: Sonographic evaluation of the left axilla demonstrates benign fibroglandular and fibromuscular tissues without a cystic or solid lesion of concern. IMPRESSION: No sonographic abnormality, as detailed above. BI-RADS Category 2: Benign finding(s). Follow-up as per ACR/ACS guidelines is suggested. Reviewed, dictated and finalized at location A.
--- OUTSIDE RECORDS SUMMARY | 2025-03-28 10:19 | XMS_ITS | Encounter Summary ---
Author Organization [facility] Address [address] [place] [address] Phone Care Team Providers Care Manager Budget Name Role Phone Lady Romero MD Primary Care Provider [phone] Roland SUH MD, James L. Unavailable [phone] Marlon Velasquez MD Primary Care Provider [phone] Choco Raymond MD Unavailable [phone] Jere Klein MD PhD Unavailable Abdulaziz Mohr MD Unavailable [phone] Encounter Details Date Type Department Care Team (Late st Contact Info) Description 12/30/2017 Orders Only [facility] [place] [address] Social History Tobacco Use Types Packs/Day Years Used Date Smoking Tobacco: Every Day Cigarettes 1 44.6 Started: 1978 Smokeless Tobacco: Never Alcohol Use Standard Drinks/Week Comments Yes 7 (1 standard drink = 0.6 oz pur e alcohol) Comments No Sex and Gender Information Value Date Recorded Sex Assigned at Not on file Legal Sex Female 11:50 PM WINDERMAN Gender Identity Not on file Sexual Orientation Not on file documented as of this encounter Plan of Treatment Not on file documented as of this encounter Procedures Procedure Name Priority Date/Time Associated Diagnosis Comments DISCHARGE LABORATORY CUMULATIVE REPORT 12/30/2017 12:00 AM CDT documented in this encounter Results * DISCHARGE LABORATORY CUMULATIVE REPORT (12/30/2017 12:00 AM CDT) Narrative 12/30/2017 12:00 AM CDT Ordered by an unspecified provider. us Historical Provider LAB BLOOD ORDERABLES Mariely l Result documented in this encounter Visit Diagnoses Not on filedocumented in this encounter Additional Health Concerns Infection Onset Date Last Indicated Resolved Time COVID: Suspected 02/22/2020 02/22/2020 02/24/2020 5:43 AM CDT Respiratory Infection (BIBIANA), contact + droplet Comment:Automatically added due to negative COVID-19 result. 02/24/2020 02/24/2020 03/09/2020 3:0 5 AM CDT COVID: Suspected 10/26/2020 10/26/2020 10/26/2020 7:35 PM CDT COVID: Suspected 06/30/2021 06/30/2021 06/30/2021 5:18 PM WINDERMAN COVID: Suspected 06/30/2021 06/30/2021 07/01/2021 7:07 AM WINDERMAN COVID19 06/30/2021 06/30/2021 07/14/2021 3:05 AM WINDERMAN COVID: Recovered Comment:Added based on recent COVID infection. 07/14/2021 07/14/2021 11/11/2021 3:05 AM C DT COVID: Suspected 10/03/2021 10/03/2021 10/03/2021 1:40 PM WINDERMAN COVID: Suspected 10/13/2024 10/13/2024 10/13/2024 3:30 PM WINDERMAN COVID19 10/13/2024 10/13/2024 10/23/2024 3:06 AM CDT COVID: Recovered Comment:Added based on recent COVID infection. 10/23/2024 10/24/2024 01/21/2025 7:26 PM C DT documented as of this encounter Care Teams Manager Budget Relationship Specialty Start Date End Date Lady Romero MD [address] [place] [address] [place] [address] PCP - General Family Medicine 12/20/17 11/27/19 Marlon Velasquez MD [address] [facility] [place] [address] PCP - General Family Medicine 11/28/19 Rojelio Watkins III, MD [address] [facility] [address] [place], [place] [id number] Oncology 10/04/18 03/02/21 Choco Raymond MD [address] [place] [address] Plastic Surgery 01/27/20 Jere Klein MD PhD [address] [place] [address] Medical Oncologist/Inspector Filter Tip Medical Oncology 09/11/20 Abdulaziz Mohr MD [address] [place] [address] [address] [facility] [address] [place] [address] Surgeon Orthopedic Surgery 03/03/21 documented as of this encounter
--- OUTSIDE RECORDS SUMMARY | 2025-03-28 10:19 | XMS_ITS | Encounter Summary ---
Author Organization [facility] Address [address] [place] [address] Phone Care Team Providers Care Cover Stitch Machine Operator Name Role Phone Marlon Velasquez MD Primary Care Provider [phone] Encounter Details Date Type Department Care Team (Late st Contact Info) Description 09/22/2023 Behavioral Health Patient Survey [facility] [address] [place] [address] Lex Whittaker PSYD [place] Social History Tobacco Use Types Packs/Day Years Used Date Smoking Tobacco: Every Day Cigarettes Smokeless Tobacco: Never Alcohol Use Standard Drinks/Week Comments Not Currently 0 (1 standard drink = 0.6 oz pur e alcohol) Sexually Active Control Partners Comments Not Currently Male Has not been a ctive in 2 years Comments No Sex and Gender Information Value Date Recorded Sex Assigned at Not on file Legal Sex Female 11:57 PM CDT Gender Identity Not on file Sexual Orientation Not on file documented as of this encounter Plan of Treatment Upcoming Encounters Date Type Department Care Team (Late st Contact Info) Description 04/04/2025 1:00 PM CDT [facility] [address] [place] [address] Lex Whittaker PSYD [place] Discharge Disposition: Discharged to home or Selfcare documented as of this encounter Goals Goal Patient Goal Type Associated Problems Recent Progress Patient-Stated? Author ANXIETY Anxiety On track(2024 11:06 AM CDT) No Lex Whittaker PSYD Note: Goal/Objective: Decrease symptoms of anxiety. Anticipated Time Frame for Goal Completion: 8 weeks Goal Reviewed with: patient Readiness to change: Thinking about making a change Department associated with goal: [facility] Steps to achieve goal: will attend counseling/psychotherapy sessions at least once monthly at least 6 sessions , utilizing individual and/or group sessions to express thoughts and feelings. to identify, verbalize and process at least three contributing factors/triggers to anxiety. T o identify at least two lifestyle changes/habits. to put into action, at least one lifestyle change/habit, for one month or longer, to reduce and or cope with anxiety. Behavioral Health Behavioral Health On track(2024 11:06 AM CDT) Yes Lex hWittaker PSYD Note: Patient will learn to care for her mother who is seriously ill with reduced anxiety over the next 30 days. documented as of this encounter Visit Diagnoses Not on filedocumented in this encounter Care Teams Cover Stitch Machine Operator Relationship Specialty Start Date End Date [place] [address] PCP - General Internal Medicine 01/01/21 documented as of this encounter
--- OUTSIDE RECORDS SUMMARY | 2025-03-28 10:19 | XMS_ITS | Clinical Summary ---
Author Organization [facility] Address [address] [place] [address] Phone Care Team Providers Care Board Attendant Name Role Phone Marlon Velasquez MD Primary Care Provider [phone] Allergies Active Allergy Reactions Criticality Noted Date Comments Celecoxib Itching Low 06/26/2019 Tramadol Hives High 06/26/2019 Medications tamoxifen citrate 20 MG Tablet 12/23/2020 Active ALPRAZolam (XANAX) 0.5 MG Tablet Take 0.5 mg by mouth. 09/19/2018 Active HYDROcodone-torres taminophen (Mahomet) 5-325 MG TabletIndicatio ns:Hand sprain, right, initial encounter Take 1 Tablet by mouth every 8 hours as needed for Moderate or more severe pain. 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 [address] [place] [address] Lex Whtitaker PSYD Generalized anxiety disorder (Primary Dx); Specific phobia; Major depressive disorder, recurrent episode, moderate (HCC) Discharge Disposition: Discharged to home or Selfcare 03/18/2025 Travel 03/01/2025 9:[address] [facility] [address] [place] [address] Lex Whittaker PSYD Generalized anxiety disorder (Primary Dx); Specific phobia Discharge Disposition: Discharged to home or Selfcare 03/01/2025 [facility] [address] [place] [address] Lex Whittaker PSYD 03/01/2025 Travel 02/15/2025 2:[address] [facility] 1 [facility] [place] [address] Lex Whittaker PSYD Generalized anxiety disorder (Primary Dx); Specific phobia; Major depressive disorder, recurrent episode, moderate (HCC) Discharge Disposition: Discharged to home or Selfcare 01/30/2025 10:00 AM CDT [facility] 1 [facility] [place] [address] Lex Whittaker PSYD Generalized anxiety disorder (Primary Dx); Specific phobia; Major depressive disorder, recurrent episode, moderate (HCC) Discharge Disposition: Discharged to home or Selfcare 01/30/2025 Travel 01/16/2025 1:00 PM CDT [facility] [address] [facility] [place] [address] Lex Whittaker PSYD Generalized anxiety disorder (Primary Dx); Specific phobia Discharge Disposition: Discharged to home or Selfcare 01/16/2025 Behavioral [facility] [address] [place] [address] Lex Whittaker PSYD 01/15/2025 Travel 12/27/2024 Travel 12/26/2024 Travel from Last 3 Months Family History Relation Name Status Comments Brother 1 Alive Brother 2 Alive Brother 3 Alive Daughter 1 (14) Alive Daughter 2 (36) Alive Father Mother Alive Sister Social History Tobacco Use Types Packs/Day Years Used Date Smoking Tobacco: Every Day Cigarettes Smokeless Tobacco: Never Tobacco Cessation:Ready to Q uit: Not Asked; Counseling Given: Not Answered Alcohol Use Standard Drinks/Week Comments Not Currently [...] on file Sexual Orientation Not on file Last Filed Vital Signs Vital Sign Reading Time Taken Comments Blood Pressure 116/78 03/09/2022 8:21 PM CDT Pulse 80 03/09/2022 8:21 PM CDT Temperature 37.2 C (98.9 F) 03/09/2022 7:09 PM CDT Respiratory Rate 18 03/09/2022 8:21 PM CDT Oxygen Saturation 98% 03/09/2022 8:21 PM CDT Inhaled Oxygen Concentration - - Weight 90.7 kg (200 lb) 03/09/2022 7:09 PM CDT Height 166.4 cm (5' 5.5) 03/09/2022 7:09 PM CDT Body Mass Index 32.78 03/09/2022 7:09 PM CDT Plan of Treatment Upcoming Encounters Date Type Department Care Team (Late st Contact Info) Description 04/04/2025 1:00 PM CDT Telemedicine [facility] [address] [place] [address] Lex Whittaker PSYD [place] Discharge Disposition: Discharged to home or Selfcare Health Maintenance Due Date Last Done Comments Hepatitis C Virus (HCV) Screening 1970 TdaP Immunization 1970 Hepatitis B Immunization (1 of 3 - 19+ 3-dose series) 02/10/1991 Pneumococcal Immunization (50+ years) (1 of 2 - PCV) 02/10/1991 Zoster Immunization (1 of 2) 02/10/1991 Pap Smear 02/10/1993 Cervical Cancer Screening (CCS) 02/10/2002 HPV/Cotest 02/10/2002 Cologuard 02/10/2017 Immunochemical Fecal Occult Blood 02/10/2017 SARS-COV-2 Immunization ( season) 2024 08/15/2021, 12/08/2020, 11/09/2020 Influenza Immunization (#1) 04/09/202505/10, 04/30/2023, 07/09/2022, Additional history exists Colonoscopy 11/25/2031 11/24/2021 Colorectal Cancer Screening 11/25/2031 Respiratory Syncytial Virus (RSV) Immunization (Adult) (1 - 1-dose 75+ series) 02/10/2047 Discussion re Starting/Frequency of Mammograms Discontinued 02/16/2014 Mammogram Discontinued 02/16/2014 Human Papillomavirus (HPV) Immunization Aged Out No longer eligible based on patient's age to complete this topic Meningococcal Immunization (ACWY) Aged Out No longer eligible based on patient's age to complete this topic Rotavirus Immunization Aged Out No lo nger eligible based on patient's age to complete this topic Goals Goal Patient Goal Type Associated Problems Recent Progress Patient-Stated? Author ANXIETY Anxiety On track(2024 11:06 AM CDT) No Lex Whittaker PSYD Note: Goal/Objective: Decrease symptoms of anxiety. Anticipated Time Frame for Goal Completion: 8 weeks Goal Reviewed with: patient Readiness to change: Thinking about making a change Department associated with goal: [facility] Steps to achieve goal: [...] On track(2024 11:06 AM CDT) Yes Lex Whittaker PSYD Note: Patient will learn to care for her mother who is seriously ill with reduced anxiety over the next 30 days. Insurance MEDICAID [facility] MEDICAID [facility] [employer] Care Teams Board Attendant Relationship Specialty Start Date End Date [place] [address] PCP - General Internal Medicine 01/01/21
--- OUTSIDE RECORDS SUMMARY | 2025-03-28 10:19 | XMS_ITS | Encounter Summary ---
Author Organization [facility] Address [address] [place] [address] Care Team Providers Care Buckle Attaching Machine Operator Name Role Phone Marlon Velasquez MD Primary Care Provider [phone] Choco Raymond MD Unavailable [phone] Jere Klein MD PhD Unavailable Abdulaziz Mohr MD Unavailable [phone] Reason for Visit * Reason Onset Date Comments Dizziness 01/16/2025 Nausea 01/16/2025 Bleeding/Bruising 01/16/2025 Itching 01/16/2025 Encounter Details Date Type Department Care Team (Late st Contact Info) Description 01/16/2025 Nurse Triage [facility] [address] [address] Sharon Romano, RN Social History Tobacco Use Types Packs/Day Years Used Date Smoking Tobacco: Every Day Cigarettes 1 44.6 Started: 08/09/1980 Smokeless Tobacco: Never Alcohol Use Standard Drinks/Week Comments Yes 10 (1 standard drink = 0.6 oz pu re alcohol) weekly Humiliation, Afraid, Rape, and Kick questionnair e Answer Date Recorded Within the last year, have y ou been afraid of your partner or ex-partner? No 04/30/2023 Within the last year, have y ou been humiliated or emotionally abused in other ways by your partner or ex-partner? No Within the last year, have y ou been kicked, hit, slapped, or otherwise physically hurt by your partner or ex-partner? No 04/30/2023 Within the last year, have y ou been raped or forced to have any kind of sexual activity by your partner or ex-partner? No 04/30/2023 Social Connection and Isolation Panel Answer Date Recorded In a typical week, how many times do you talk on the phone with family, friends, or neighbors? More than three times a week 04/30/2023 How often do you get togethe r with friends or relatives? Once a week 04/30/2023 How often do you attend chur or baptist services? Never 04/30/2023 Do you belong to any clubs o r organizations such as mandaeism groups, unions, fraternal or athletic groups, or school groups? No 04/30/2023 How often do you attend meet ings of the clubs or organizations you belong to? Never 04/30/2023 Are you , , di vorced, , never , or living with a partner? 04/30/2023 AUDIT-C Answer Date Recorded Frequency of Alcohol Consumption Not on file 09/10/2023 Q2: How many drinks containi ng alcohol do you have on a typical day when you are drinking? 1 or 2 09/10/2023 Q3: How often do you have si x or more drinks on one occasion? Weekly 09/10/2023 Overall Financial Resource Strain (CARDIA) Answe r Date Recorded How hard is it for you to pa y for the very basics like food, housing, medical care, and heating? Not hard at all 04/30/2023 PHQ-2 Answer Date Recorded PHQ-2 Total Score (If total score is 3 or more points, staff should administer the PHQ-9) 1 01/15/2025 [facility] - Occupational Stress Questionnaire Answer Date Recorded Do you feel stress - tense, restless, nervous, or anxious, or unable to sleep at night because your mind is troubled all the time - these days? Very much 04/30/2023 Exercise Vital Sign Answer Date Recorde d On average, how many days pe r week do you engage in moderate to strenuous exercise (like a brisk walk)? 0 days 04/30/2023 On average, how many minutes do you engage in exercise at this level? 0 min 04/30/2023 Hunger Vital Sign Answer Date Recorded Within the past 12 months, y ou worried that your food would run out before you got the money to buy more. Never true 04/30/20 23 Within the past 12 months, t he food you bought just didn't last and you didn't have money to get more. Never true 04/30/2023 PRAPARE - Transportation Answer Date Re corded In the past 12 months, has l ack of transportation kept you from medical appointments or from getting medications? No 04/10 In the past 12 months, has l ack of transportation kept you from meetings, work, or from getting things needed for daily living? No 04/30/2023 Housing Stability Vital Sign Answer Alphonso e Recorded In the last 12 months, was t here a time when you were not able to pay the mortgage or rent on time? No 04/30/2023 In the last 12 months, how many places have you lived? 1 04/30/2023 In the last 12 months, was t here a time when you did not have a steady place to sleep or slept in a nursing home (including now)? No 04/30/2023 Personal Safety Answer Date Recorded Getting School Help Needed Denies 07/21 Comments No Sex and Gender Information Value Date Recorded Sex Assigned at Not on file Legal Sex Female 11:50 PM STONEMASON HELPER Gender Identity Not on file Sexual Orientation Not on file documented as of this encounter Miscellaneous Notes * Telephone Encounter - Alyssia Hansen MA - 01/17/2025 1:29 PM CDT Pt aware * Telephone Encounter - Alyssia Hansen MA - 01/17/2025 9:06 AM CDT Any additional lab work or testing that you would like to order for pt? * Telephone Encounter - Sharon Romano RN - 01/16/2025 5:34 PM CDT Reason for Conversation Dizziness, Nausea, Bleeding/Bruising, and Itching Background Audrey Francis calling due to dizziness, nausea, concerns about lab work - things have worsened since 01/11. Relayed message from Dr. Velasquez regarding lab results from today. Has hx of breast cancer and is concerned. Dizziness started when she started PT for vertigo. Hasn't felt right since then. Feels off balance. 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 Worsened over the last year. Even worse over the last week. Pt also bruising easily. Zofran was approved by insurance and she took it yesterday and it made her lose her appetite. Headache became more severe. Worried about WBC going up and down periodically. Notes some problems with breast implants - replaced in 2019. Both are bothering her now. Has gotten CT scan in October 2023 to check for leaking and none was found. Sees oncology for more testing in April. Itchiness that is out of the ordinary. Pt does have 02/01 surgery for ovary removal for ovarian cancer prevention. Pt also says Dr. Velasquez notes are not showing up in [facility]. Disposition Call PCP Within 24 Hours. She knows something is wrong and does not want something to be missed. She is very anxious about all her symptoms and wants to know what other tests can be run to rule out that anything is wrong. Concerned for Polycythemia Vera as her symptoms seem to be consistent. Routing to Marlon Velasquez MD's office to further f/u with pt Encouraged to call back if there are further questions or concerns. Encouraged to call back if symptoms persist or worsen. Reason for Disposition [1] Caller has NON-URGENT question (includes prescribed medication questions) AND [2] triager unable to answer Protocols Used Recent Medical Visit for Illness Follow-up [id number] * Telephone Encounter - Matilde Rao RN - 01/16/2025 5:17 PM CDT Regarding: extreme dizziness ----- Message from Jeanie Troncoso sent at 01/16/2025 5:14 PM CDT ----- Caller concern: extreme dizziness and nausea, recently had labs done, unsure what to do or if she needs medication Duration: Today documented in this encounter Plan of Treatment Not on file documented as of this encounter Goals Goal Patient Goal Type Associated Problems Recent Progress Patient-Stated? Author CCM Chronic Pain Care Plan Chronic Care Management Worsening( 1:56 PM STONEMASON HELPER) No Ileana Lainez RN Note: Problem: Chronic Pain Goals: 1. Minimize further functional decline 2. Maximize quality of life 3. Control pain Strategies: - Activity/exercise program recommendation - Conservative stepwise pain medicine strategy with multi-disciplinary approach - Recommend healthy lifestyle strategies and compensatory methods as needed documented as of this encounter Visit Diagnoses Not on filedocumented in this encounter Additional Health Concerns Infection Onset Date Last Indicated Resolved Time COVID: Recovered Comment:Added based on recent COVID infection. 10/23/2024 10/24/2024 01/21/2025 7:26 PM C DT documented as of this encounter Care Teams Buckle Attaching Machine Operator Relationship Specialty Start Date End Date Marlon Velasquez MD [address] [place] [address] PCP - General Family Medicine 11/28/19 Choco Raymond MD [address] [place] [address] Plastic Surgery 01/27/20 Jere Klein MD PhD [address] [place] [address] Medical Oncologist/Mobile Manager Medical Oncology 09/11/20 Abdulaziz Mohr MD [address] [facility] [address] [place] [address] Surgeon Orthopedic Surgery 03/03/21 documented as of this encounter
--- OUTSIDE RECORDS SUMMARY | 2025-03-28 10:19 | XMS_ITS | Encounter Summary ---
Author Organization [facility] Address [address] [place] [address] Phone Care Team Providers Care Bus Attendant Name Role Phone Marlon Velasquez MD Primary Care Provider [phone] Encounter Details Date Type Department Care Team (Late st Contact Info) Description 03/01/2025 Behavioral Health Patient Survey [facility] [address] [place] [address] Lex Whittaker PSYD [place] Social History Tobacco Use Types Packs/Day Years [...] Info) Description 04/04/2025 1:00 PM CDT [facility] [address] [place] [address] Lex Whittaker PSYD [place] Discharge Disposition: Discharged [...] making a change Department associated with goal: [facility] Steps to achieve goal: [...] on filedocumented in this encounter Care Teams Bus Attendant Relationship Specialty Start Date End Date [place] [address] PCP - General Internal Medicine 01/01/21 documented as of this encounter
--- OUTSIDE RECORDS SUMMARY | 2025-03-28 10:19 | XMS_ITS | Encounter Summary ---
Author Organization [facility] Healthcare Address [address] [place] [address] Care Team Providers Care Spinning Machine Operator Name Role Phone Marlon Velasquez MD Primary Care Provider [phone] Choco Raymond MD Unavailable [phone] Jere Klein MD PhD Unavailable Abdulaziz Mohr MD Unavailable [phone] Reason for Visit * Reason Onset Date Comments PRECALL 06/19/2021 Encounter Details Date Type Department Care Team (Late st Contact Info) Description 06/19/2021 Telephone [facility] at [facility] [address] 1st [place] [address] Delores Carpenter, RN PRECALL Social History Tobacco Use Types Packs/Day Years Used Date Smoking Tobacco: Every Day Cigarettes 0.5 44.6 Started: 1978 Smokeless Tobacco: Never Alcohol Use Standard Drinks/Week Comments Yes 10 (1 standard drink = 0.6 oz pu re alcohol) weekly AUDIT-C Answer Date Recorded Q1: How often do you have a drink containing alc ohol? 2-4 times a month 06/05/2021 Q2: How many drinks containi ng alcohol do you have on a typical day when you are drinking? 1 or 2 06/05/2021 Q3: How often do you have si x or more drinks on one occasion? Never 06/05/2021 PHQ-2 Answer Date Recorded PHQ-2 Total Score (If total score is 3 or more points, staff should administer the PHQ-9) 0 10/29/2020 Comments No Sex and Gender Information Value Date Recorded Sex Assigned at Not on file Legal Sex Female 11:50 PM SUPERVISOR BODY ASSEMBLY Gender Identity Not on file Sexual Orientation Not on file documented as of this encounter Plan of Treatment Not on file documented as of this encounter Goals Goal Patient Goal Type Associated Problems Recent Progress Patient-Stated? Author CCM Chronic Pain Care Plan Chronic Care Management Worsening( 1:56 PM SUPERVISOR BODY ASSEMBLY) No Ileana Lainez, RN Note: Problem: Chronic Pain Goals: 1. [...] Date Last Indicated Resolved Time COVID: Suspected 06/30/2021 06/30/2021 06/30/2021 5:18 PM SUPERVISOR BODY ASSEMBLY COVID: Suspected 06/30/2021 06/30/2021 07/01/2021 7:07 AM SUPERVISOR BODY ASSEMBLY COVID19 06/30/2021 06/30/2021 07/14/2021 3:05 AM SUPERVISOR BODY ASSEMBLY COVID: Recovered Comment:Added based on recent COVID infection. 07/14/2021 07/14/2021 11/11/2021 3:05 AM C DT COVID: Suspected 10/03/2021 10/03/2021 10/03/2021 1:40 PM SUPERVISOR BODY ASSEMBLY COVID: Suspected 10/13/2024 10/13/2024 10/13/2024 3:30 PM SUPERVISOR BODY ASSEMBLY COVID19 10/13/2024 10/13/2024 10/23/2024 3:0 6 AM CDT COVID: Recovered Comment:Added based on recent COVID infection. 10/23/2024 10/24/2024 01/21/2025 7:26 PM C DT documented as of this encounter Care Teams Spinning Machine Operator Relationship Specialty Start Date End Date Marlon Velasquez MD [address] [place] [address] PCP - General Family Medicine 11/28/19 Choco Raymond MD [address] [place] [address] Plastic Surgery 01/27/20 Jere Klein MD PhD [address] [place] [address] Medical Oncologist/Accounts Payable Representative Medical Oncology 09/11/20 Abdulaziz Mohr MD [address] [place] [address] DR ARAGON B [address] [address] Surgeon Orthopedic Surgery 03/03/21 documented as of this encounter
--- OUTSIDE RECORDS SUMMARY | 2025-03-28 10:19 | XMS_ITS | Encounter Summary ---
Author Organization [facility] Address [address] [place] [address] Phone Care Team Providers Care Patient Care Technician Instructor Name Role Phone Marlon Velasquez MD Primary Care Provider [phone] Encounter Details Date Type Department Care Team (Late st Contact Info) Description 12/14/[address] [facility] Services [address] [place] [address] Lex Whittaker PSYD [place] Social History Tobacco Use Types Packs/Day Years [...] Description 04/04/2025 1:00 PM CDT [facility] [address] [place] [address] Lex Whittaker PSYD [place] Discharge Disposition: Discharged [...] making a change Department associated with goal: [facility] Steps to achieve goal: [...] on filedocumented in this encounter Care Teams Patient Care Technician Instructor Relationship Specialty Start Date End Date [place] [address] PCP - General Internal Medicine 01/01/21 documented as of this encounter
--- OUTSIDE RECORDS SUMMARY | 2025-03-28 10:19 | XMS_ITS | Encounter Summary ---
Author Organization [facility] Healthcare Address [address] [place] [address] Care Team Providers Care Healthcare Architect Name Role Phone Marlon Velasquez MD Primary Care Provider [phone] Choco Raymond MD Unavailable [phone] Jere Klein MD PhD Unavailable Abdulaziz Mohr MD Unavailable [phone] Reason for Visit * Reason Onset Date Comments Pre Arrival 12/25/2021 Encounter Details Date Type Department Care Team (Late st Contact Info) Description 12/25/[address] [facility] Center at [facility] [address] 1st [place] [address] Delores Carpenter RN Pre Arrival Social History Tobacco Use Types Packs/Day Years [...] points, staff should administer the PHQ-9) 0 07/22/2021 Comments No Sex and Gender Information Value Date Recorded Sex Assigned at Not on file Legal Sex Female 11:50 PM TOMOGRAPHY TECHNOLOGIST Gender Identity Not on file Sexual Orientation Not on file documented as of this encounter Plan of Treatment Not on file documented as of this encounter Goals Goal Patient Goal Type Associated Problems Recent Progress Patient-Stated? Author CCM Chronic Pain Care Plan Chronic Care Management Worsening( 1:56 PM TOMOGRAPHY TECHNOLOGIST) No Ileana Lainez, RN Note: Problem: Chronic [...] Date Last Indicated Resolved Time COVID: Suspected 10/13/2024 10/13/2024 10/13/2024 3:30 PM TOMOGRAPHY TECHNOLOGIST COVID19 10/13/2024 10/13/2024 10/23/2024 3:06 AM CDT COVID: Recovered Comment:Added based on recent COVID infection. 10/23/2024 10/24/2024 01/21/2025 7:26 PM C DT documented as of this encounter Care Teams Healthcare Architect Relationship Specialty Start Date End Date Marlon Velasquez MD [address] [place] [address] PCP - General Family Medicine 11/28/19 Choco Raymond MD [address] [place] [address] Plastic Surgery 01/27/20 Jere Klein MD PhD [address] [place] [address] Medical Oncologist/Clerk Typist Medical Oncology 09/11/20 Abdulaziz Mohr MD [address] [place] [address] Surgeon Orthopedic Surgery 03/03/21 documented as of this encounter
--- OUTSIDE RECORDS SUMMARY | 2025-03-28 10:19 | XMS_ITS | Encounter Summary ---
Author Organization [facility] Address [address] [place] [address] Phone Care Team Providers Care Odd Job Worker Name Role Phone Marlon Velasquez MD Primary Care Provider [phone] Encounter Details Date Type Department Care Team (Late st Contact Info) Description 04/04/2024 Behavioral Health Patient Survey [facility] Behavioral Health Services [address] [place] [address] Lex Whittaker PSYD [place] Social History Tobacco Use Types Packs/Day Years [...] Info) Description 04/04/2025 1:00 PM CDT [facility] [address] [place] [address] Lex Whittaker PSYD [place] Discharge Disposition: Discharged [...] making a change Department associated with goal: [facility] BE[facility]IORAL HE[facility] SERVICES Steps to achieve [...] on filedocumented in this encounter Care Teams Odd Job Worker Relationship Specialty Start Date End [place] [address] PCP - General Internal Medicine 01/01/21 documented as of this encounter
--- OUTSIDE RECORDS SUMMARY | 2025-03-28 10:19 | XMS_ITS | Encounter Summary ---
Author Organization [facility] Address [address] [place] [address] Phone Care Team Providers Care Fuel Oil Clerk Name Role Phone Marlon Velasquez MD Primary Care Provider [phone] Encounter Details Date Type Department Care Team (Late st Contact Info) Description 02/21/2024 Behavioral Health Patient Survey [facility] Health Services 1 [place] [address] Lex Whittaker PSYD [place] Social History Tobacco Use Types Packs/Day Years [...] Info) Description 04/04/2025 1:00 PM CDT [facility] 1 [place] [address] Lex Whittaker PSYD [place] Discharge Disposition: Discharged [...] on filedocumented in this encounter Care Teams Fuel Oil Clerk Relationship Specialty Start Date End [place] [address] PCP - General Internal Medicine 01/01/21 documented as of this encounter
--- OUTSIDE RECORDS SUMMARY | 2025-03-28 10:19 | XMS_ITS | Encounter Summary ---
Author Organization [facility] Address [address] [place] [address] Phone Care Team Providers Care Clearing Hand Name Role Phone Marlon Velasquez MD Primary Care Provider [phone] Encounter Details Date Type Department Care Team (Late st Contact Info) Description 11/04/2023 Behavioral Health Patient Survey [facility] Behavioral Health Services 1 [place] [address] Lex Whittaker PSYD [place] Social History Tobacco Use Types Packs/Day Years [...] Info) Description 04/04/2025 1:00 PM CDT [facility] [address] [place] [address] Lex Whittaker PSYD [place] Discharge Disposition: Discharged [...] making a change Department associated with goal: [facility]AVIORAL HE[facility] SERVICES Steps to achieve [...] on filedocumented in this encounter Care Teams Clearing Hand Relationship Specialty Start Date End [place] [address] PCP - General Internal Medicine 01/01/21 documented as of this encounter
--- OUTSIDE RECORDS SUMMARY | 2025-03-28 10:19 | XMS_ITS | Encounter Summary ---
Author Organization [facility] Address [address] [place] [address] Phone Care Team Providers Care Screen Machine Operator Name Role Phone Marlon Velasquez MD Primary Care Provider [phone] Encounter Details Date Type Department Care Team (Late st Contact Info) Description 01/16/2025 Behavioral Health Patient Survey [facility] Behavioral Health Services [address] [place] [address] Lex Whittaker PSYD [place] Social History Tobacco Use Types Packs/Day Years [...] Info) Description 04/04/2025 1:00 PM CDT [facility] [address] [place] [address] Lex Whittaker PSYD [place] Discharge Disposition: Discharged [...] making a change Department associated with goal: [facility] HE[facility] SERVICES Steps to achieve [...] on filedocumented in this encounter Care Teams Screen Machine Operator Relationship Specialty Start Date End [place] [address] PCP - General Internal Medicine 01/01/21 documented as of this encounter
--- OUTSIDE RECORDS SUMMARY | 2025-03-28 10:19 | XMS_ITS | Clinical Summary ---
Author Organization [facility] Address [address] [facility] [place] [address] Care Team Providers Care Vice President Global Digital Marketing Name Role Phone Lady Romero MD Primary Care Provider [phone] Allergies Active Allergy Reactions Criticality Noted Date Comments Celecoxib Itching Low 06/26/2019 Tramadol Hives High 06/26/2019 Medications albuterol HFA 90 mcg inhaler 9 Active ALPRAZolam (XANAX) 0.5 mg tablet 9 Active tamoxifen (NOLVADEX) 20 mg tablet 9 Active cyclobenzaprine (FLEXERIL) 10 mg tablet Take 10 mg by mouth 3 times daily as needed for Spasm. Active albuterol (PROVENTIL,VENTOL IN) 0.63 mg/3 mL Solution for Nebulization Take 0.63 mg by inhalation one time only. Active oxyCODONE (ROXICODONE) 5 mg tabletIndications :Malignant neoplasm of left breast in female, estrogen receptor positive, unspecified site of breast (CMS/HCC) Take 1 Tablet (5 mg) by mouth every 8 hours as needed for Pain. Max Daily Amount: 15 mg 60 Tablet 9 Active Active Problems Problem Noted Date Diagnosed Date Malignant neoplasm of overla pping sites of left breast in female, estrogen receptor positive 06/26/2019 Family History Medical History Relation Name Comments Diabetes Father Diabetes Mother Lung Cancer Mother Melanoma Mother Cervical Cancer Sister Melanoma Sister Relation Name Status Comments Brother 1 Alive Brother 2 Alive Brother 3 Alive Father Alive Mother Alive Sister Social History Tobacco Use Types Packs/Day Years Used Date Smoking Tobacco: Every Day Cigarettes 1 32 Smokeless Tobacco: Never Alcohol Use Standard Drinks/Week Comments Yes 0 (1 standard drink = 0.6 oz pur e alcohol) Comments No Sex and Gender Information Value Date Recorded Sex Assigned at Not on file Legal Sex Female 10:36 AM CDT Gender Identity Not on file Sexual Orientation Not on file Last Filed Vital Signs Vital Sign Reading Time Taken Comments Blood Pressure 190/111 08/24/2019 11:08 AM HATCHERY ATTENDANT Pulse 73 08/24/2019 11:08 AM HATCHERY ATTENDANT Temperature 36.4 C (97.6 F) 08/24/2019 11:08 AM HATCHERY ATTENDANT Respiratory Rate 20 08/24/2019 11:08 AM HATCHERY ATTENDANT Oxygen Saturation 94% 08/24/2019 11:08 AM HATCHERY ATTENDANT Inhaled Oxygen Concentration - - Weight 86.2 kg (190 lb 1.6 oz) 08/24/2019 11:08 AM HATCHERY ATTENDANT Height 167.6 cm (5' 6) 08/24/2019 11:08 AM HATCHERY ATTENDANT Body Mass Index 30.68 08/24/2019 11:08 AM HATCHERY ATTENDANT Plan of Treatment Health Maintenance Due Date Last Done Comments DTAP/TDAP/TD VACCINES (1 - Tdap) 02/10/1991 HEPATITIS B VACCINES (1 of 3 - 19+ 3-dose series) 12/1990 HPV/Cotest (21-29) 02/10/1993 CERVICAL CANCER SCREENING 02/10/2002 HPV/Cotest (30-65) 02/10/2002 PAP SMEAR 02/10/2002 BREAST CANCER SCREENING 2012 COLORECTAL SCREENING 02/10/2017 Colorectal Cancer Screening 02/10/2017 FIT-DNA Q 3 years 02/10/2017 FIT/FOBT Q 1 year 02/10/2017 Flex Sig/CT Colonography Q 5 years 02/10/2017 ZOSTER VACCINE (1 of 2) 02/10/2022 INFLUENZA VACCINE (#1) 2025 06/19/[address] [place] [address] [place] [address] MEDICAID Care Teams Vice President Global Digital Marketing Relationship Specialty Start Date End Date Lady Romero MD PCP - General Family Practice 11/09/18
--- OUTSIDE RECORDS SUMMARY | 2025-03-28 10:19 | XMS_ITS | Encounter Summary ---
Author Organization [facility] Healthcare Address [address] [place] [address] Care Team Providers Care Fruit Thinner Machine Operator Name Role Phone Roland SUH MD, Rojelio Chavarria Unavailable [phone] Marlon Velasquez MD Primary Care Provider [phone] Choco Raymond MD Unavailable [phone] Jere Klein MD PhD Unavailable Abdulaziz Mohr MD Unavailable [phone] Encounter Details Date Type Department Care Team (Late st Contact Info) Description 12/17/2020 Telephone [facility] [address] [facility] A, [facility] [address] [place] [address] Bobby Delgadillo MD [address] [place] [address] [address] [place] [address] Social History Tobacco Use Types Packs/Day Years Used Date Smoking Tobacco: Every Day Cigarettes 0.5 44.6 Started: 1978 Smokeless Tobacco: Never Alcohol Use Standard Drinks/Week Comments Yes 10 (1 standard drink = 0.6 oz pu re alcohol) weekly PHQ-2 Answer Date Recorded PHQ-2 Total Score (If total score is 3 or more points, staff should administer the PHQ-9) 0 10/29/2020 Comments No Sex and Gender Information Value Date Recorded Sex Assigned at Not on file Legal Sex Female 11:50 PM TANK TRUCK LOADER Gender Identity Not on file Sexual Orientation Not on file documented as of this encounter Plan of Treatment Not on file documented as of this encounter Visit Diagnoses Not on filedocumented in this encounter Additional Health Concerns Infection Onset Date Last Indicated Resolved Time COVID: Suspected 06/30/2021 06/30/2021 06/30/2021 5:18 PM TANK TRUCK LOADER COVID: Suspected 06/30/2021 06/30/2021 07/01/2021 7:07 AM TANK TRUCK LOADER COVID19 06/30/2021 06/30/2021 07/14/2021 3:05 AM TANK TRUCK LOADER COVID: Recovered Comment:Added based on recent COVID infection. 07/14/2021 07/14/2021 11/11/2021 3:05 AM C DT COVID: Suspected 10/03/2021 10/03/2021 10/03/2021 1:40 PM TANK TRUCK LOADER COVID: Suspected 10/13/2024 10/13/2024 10/13/2024 3:30 PM TANK TRUCK LOADER COVID19 10/13/2024 10/13/2024 10/23/2024 3:06 AM CDT COVID: Recovered Comment:Added based on recent COVID infection. 10/23/2024 10/24/2024 01/21/2025 7:26 PM C DT documented as of this encounter Care Teams Fruit Thinner Machine Operator Relationship Specialty Start Date End Date Marlon Velasquez MD [address] [place] [address] PCP - General Family Medicine 11/28/19 Rojelio Watkins III, MD [address] [place] [address] Oncology 10/04/18 03/02/21 Choco Raymond MD [address] [place] [address] Plastic Surgery 01/27/20 Jere Klein MD PhD [address] [place] [address] Medical Oncologist/Senior Media Director Medical Oncology 09/11/20 Abdulaziz Mohr MD [address] [place] [address] [address]ON [address] [address] Surgeon Orthopedic Surgery 03/03/21 documented as of this encounter
--- OUTSIDE RECORDS SUMMARY | 2025-03-28 10:19 | XMS_ITS | Encounter Summary ---
Author Organization [facility] Address [address] [place] [address] Phone Care Team Providers Care Home Health Administrator Name Role Phone Marlon Velasquez MD Primary Care Provider [phone] Encounter Details Date Type Department Care Team (Late st Contact Info) Description 11/30/2024 Behavioral Health Patient Survey [facility] Behavioral Health Services [address] [place] [address] Lex Whittaker PSYD [place] Social History Tobacco Use Types Packs/Day Years [...] Info) Description 04/04/2025 1:00 PM CDT [facility] [address] [place] [address] Lex Whittaker PSYD [place] Discharge Disposition: Discharged [...] a change Department associated with goal: [facility]AV[facility] HE[facility] SERVICES Steps to [...] on filedocumented in this encounter Care Teams Home Health Administrator Relationship Specialty Start Date End [place] [address] PCP - General Internal Medicine 01/01/21 documented as of this encounter
--- OUTSIDE RECORDS SUMMARY | 2025-03-28 10:19 | XMS_ITS | Encounter Summary ---
Author Organization [facility] Address [address] [place] [address] Phone Care Team Providers Care Circulation Director Name Role Phone Marlon Velasquez MD Primary Care Provider [phone] Encounter Details Date Type Department Care Team (Late st Contact Info) Description 08/18/2023 Behavioral Health Patient Survey [facility] Behavioral Health Services [address] [place] [address] Lex Whittaker PSYD [place] Social History Tobacco Use Types Packs/Day Years [...] Info) Description 04/04/2025 1:00 PM CDT [facility] [address] [place] [address] Lex Whittaker PSYD [place] Discharge Disposition: Discharged [...] making a change Department associated with goal: [facility] BE[facility]AVIOR[facility] HE[facility] SERVICES Steps to achieve [...] on filedocumented in this encounter Care Teams Circulation Director Relationship Specialty Start Date End Date [place] [address] PCP - General Internal Medicine 01/01/21 documented as of this encounter
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
--- OUTSIDE RECORDS SUMMARY | 2025-03-28 10:20 | XMS_ITS | Clinical Summary ---
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 isdiffuse mild bronchial wall thickening, likely reflecting chronic bronchitis. LUNG NODULES: Multifocal ill-defined right upper lobe ground-glass opacities, the largest measuring 2.2 x 1.5 cm on series 2, image 103.Right middle lobe 6 mm perifissural ground-glass nodule, series 3, image 170. Afew scattered left upper lobe ill-defined ground-glass nodules measuring up to6 mm, for example, image 71, 79, 62, 43. CORONARY ARTERY CALCIFICATION: Mild coronary artery calcifications. OTHER: The central airways are patent. No focal consolidation orpleural effusion. No thoracic lymphadenopathy. The heart is normal in sizewithout pericardial effusion. No thoracic aortic aneurysm. No acute fractures or suspicious bony lesions. Bilateral breast implants are in place. The visualized upper abdomen is normal. Postsurgical changes of a ventralhernia mesh repair. IMPRESSION: Multifocal ill-defined bilateral ground-glass nodules, predominantly inthe right upper lobe measuring up to 2.2 cm. Findings favor an infectious/inflammatory etiology. Lung-RADS v1.1 category 2: Benign appearance or behavior. Recommendation: Low dose Screening CT of chest in 12 months. THIS IS AN ELECTRONICALLY VERIFIED FINAL REPORT 12/07/2022 9:12 AM - Electronically signed by Grady Marin M.D. KR: MARKUS Report ID: [id number] Reading Location: [id number] Philip Roper MD IMG CT PROCEDURES Final Result * COLONOSCOPY (11/24/2021 1:53 PM CDT) Anatomical Region Laterality Modality Other Narrative Procedure Note Sukhdeep Joyner MD - 11/24/2021 1:53 PM CDT [facility] Patient Name: November Tito Procedure Date: 11/24/2021 1:53 PM Date of : 1970 Admit Type: Outpatient Age: 51 Gender: Female Attending MD: Sukhdeep Joyner M.D. [facility] 1 Note Status: Finalized Patient Profile: This is a 51 year old female. No family history of colon cancer. Patient has chronic constipation. Procedure: Colonoscopy Indications: Screening for colorectal malignant neoplasm, Last colonoscopy: February 2012 Referring MD: Marlon Velasquez M.D. Providers: Sukhdeep Joyner M.D. Impression: - One 5 mm polyp in the sigmoid colon, removed witha jumbo cold forceps. Resected and retrieved. - Diverticulosis in the sigmoid colon. - Internal hemorrhoids. Recommendation: - Await pathology results. - Repeat colonoscopy in 5 years for screeningpurposes. - Continue present medications. Medicines: Monitored Anesthesia Care Complications: No immediate complications. Estimated Blood Loss: Estimated blood loss: none. Procedure: Pre-Anesthesia Assessment: - Prior to the procedure, a History and Physicalwas performed, and patient medications and allergieswere reviewed. The patient's tolerance of previous anesthesia was also reviewed. The risks andbenefits of the procedure and the sedation options and risks were discussed with the patient. All questions were answered, and informed consent was obtained. Prior Anticoagulants: The patient has taken noanticoagulant or antiplatelet agents. ASA Grade Assessment: III -A patient with severe systemic disease. Afterreviewing the risks and benefits, the patient was deemed in satisfactory condition to undergo the procedure. The benefits, risks and alternatives of theprocedure and sedation were discussed and informed consentwas obtained. All questions were answered. Please referto the signed informed consent document in the medical record. The bowel preparation used was Miralax via split dose instruction. The bowel preparation usedwas bisacodyl tablets via split dose instruction. The scope was passed under direct vision. The Pediatric Colonoscope PCF-[id number] was introducedthrough the anus and advanced to the the cecum, identifiedby appendiceal orifice and ileocecal valve. Thequality of the bowel preparation was good. Bowel prep was administered using a split dose. Findings: The perianal and digital rectal examinations were normal. The cecum appeared normal. The rectum, descending colon, transverse colon and ascending colon appeared normal. A 5 mm polyp was found in the sigmoid colon. The polyp was sessile.The polyp was removed with a jumbo cold forceps. Resection and retrieval were complete. Multiple medium-mouthed diverticula were found in the sigmoidcolon. Internal hemorrhoids were found during retroflexion. The hemorrhoids were small. Electronically signed by Sukhdeep Joyner M.D. Sukhdeep Joyner M.D. 11/24/2021 3:37:33 PM Number of Addenda: 0 Note Initiated On: 11/24/2021 1:53 PM Procedure Code(s): --- Professional --- 17373, Colonoscopy, flexible; with biopsy, single or multiple Diagnosis Code(s): --- Professional --- Z12.11, Encounter for screening for malignant neoplasm of colon K64.8, Other hemorrhoids D12.5, Benign neoplasm of sigmoid colon K57.30, Diverticulosis of large intestine without perforation orabscess without bleeding CPT copyright 2020 [employer]. All rights reserved. The codes documented in this report are preliminary and upon manager nc reviewmay be revised to meet current compliance requirements. Recognized by the [employer] for promoting quality in endoscopy Sukhdeep Joyner MD ENDOSCOPY PROCEDURES Final Result * Screening Mammogram W Robert (02/16/2014 11:05 AM CDT) Anatomical Region Laterality Modality Breast N/A Mammography 02/16/2014 11:0 5 AM CDT Narrative 02/16/2014 4:53 PM CDT ARISTIDES SPRAGUE M.D. FINAL REPORT ACC# Date Time Exam [id number] Feb 16, 2014 11:18:00 [facility] [id number] Diag Mammogram Bilateral Technologist(s): Sharona Valdez; ; [id number] Feb 16, 2014 11:52:00 [facility] [id number] Sono Breast (Unilateral) L [id number] Feb 16, 2014 11:05:00 [facility] [id number] Unilateral Tomosynthesis L Technologist(s): Sharona Valdez; ; EXAMINATION: BILATERAL FULL FIELD DIGITAL DIAGNOSTIC MAMMOGRAM WITH CAD, DIGITAL LEFT BREAST TOMOSYNTHESIS, AND LEFT BREAST SONOGRAM HISTORY: 44-year-old woman with an abnormal mammogram from another facility. Outside mammograms from [facility] dated 01/31/2014 and 02/02/2014 demonstrate a focal asymmetry in the outer left breast at the 3:00 to 4:00 position and a subcentimeter group of microcalcifications within the lower outer quadrant of the right breast. Also, the patient reports having a palpable lump of concern in her outer left breast at the 3 o'clock position. Bilateral diagnostic mammogram and directed left breast sonogram are requested by Dr. Briana Us, who is seeing the patient in breast surgery clinic today. MAMMOGRAM TECHNIQUE: Full field digital craniocaudal and mediolateral oblique views of both breasts and additional views were obtained on a total of 11 images. Digital left breast tomosynthesis was performed and reviewed as a part of this examination. Computer Aided Detection was performed with [employer] version 9.3. COMPARISON: Comparison is made with prior outside mammograms from [facility] dated 01/31/2014 and 02/02/2014. BREAST PARENCHYMAL COMPOSITION: The breasts are heterogeneously dense, which may obscure small masses. MAMMOGRAM FINDINGS: Within the outer left breast at the 3 o'clock position, middle to posterior depth, there is a mass measuring approximately 1.5 cm with associated architectural distortion and microcalcifications. Within the central lower outer quadrant of the left breast at the 4 o'clock position, posterior depth, there is a 0.9 cm mammographic mass. There is a subcentimeter group of heterogeneous microcalcifications in a linear distribution within the lower outer quadrant of the right breast at middle depth. SONOGRAM FINDINGS: This left breast sonogram is somewhat limited by the patient's inability to avoid moving during the course of the examination (due to reported back spasms and breast pain, and due to her difficulty with suppressing episodes of coughing during the course of the examination). Directed sonogram of the outer left breast was performed from approximately the one o'clock position to the 5 o'clock position. At the 3 o'clock position, corresponding with the patient's indicated palpable lump of concern, there is a 0.9 x 1.0 x 0.7 cm non-parallel, heterogeneous, hypoechoic mass. At the 4 o'clock position, corresponding with another palpable lump, there is a similar-appearing heterogeneous hypoechoic mass measuring 1.2 x 1.2 x at least 1.7 cm. These masses are highly suspicious for malignancy and the aggregate superior to inferior measurement of these 2 masses is at least 4.5 cm. Directed sonogram of the left axillary region demonstrates several lymph nodes with abnormal nodular cortical thickening. IMPRESSION: 1) Heterogeneous hypoechoic masses measuring at least 4.5 cm in aggregate within the outer left breast at the 3:00 to 4:00 position are highly suspicious for malignancy. Biopsy is recommended. 2) Several left axillary lymph nodes with abnormal nodular cortical thickening. If clinically indicated, ultrasound-guided fine needle aspiration biopsy can be utilized to evaluate for metastatic malignancy. 3) A subcentimeter group of indeterminate microcalcifications is seen within the lower outer quadrant of the right breast. Biopsy is recommended to evaluate for malignancy. These microcalcifications are amenable to stereotactic-guided core needle biopsy. 4) If one or more of the above biopsies demonstrates malignancy, then bilateral breast MRI should be considered. At the conclusion of the examination, the above findings and recommendations were discussed with the patient and with Dr. Briana Us, who is seeing the patient breast surgery clinic today. The patient was subsequently scheduled to return to the [facility] on 02/19/2014 at 11:00 a.m. for an ultrasound-guided core needle biopsy of one of the left breast masses, an ultrasound-guided fine needle aspiration biopsy of one of the morphologically abnormal left axillary lymph nodes, and a stereotactic-guided core needle biopsy of the indeterminate microcalcifications within the lower outer quadrant of the right breast. Left breast: BI-RADS Category 5: Highly suggestive of malignancy. Right breast: BI-RADS Category 4A: Suspicious abnormality. Low suspicion for malignancy. OVERALL FINAL ASSESSMENT: BI-RADS Category 5: Highly suggestive of malignancy. Requested By: Briana Us M.D. Dictated By: ARISTIDES SPRAGUE M.D. on Feb 16 2014 4:53P This document has been electronically signed by: ARISTIDES SPRAGUE M.D. on Feb 16 2014 4:53P Procedure Note Provider, MD Luc - 12/07/2016 ARISTIDES SPRAGUE M.D. FINAL REPORT ACC# Date Time Exam [id number] Feb 16, 2014 11:18:00 [facility] [id number] Diag Mammogram Bilateral Technologist(s): Sharona Valdez; ; [id number] Feb 16, 2014 11:52:00 [facility] [id number] Sono Breast (Unilateral) L [id number] Feb 16, 2014 11:05:00 [facility] [id number] Unilateral Tomosynthesis L Technologist(s): Sharona Valdez; ; EXAMINATION: BILATERAL FULL FIELD DIGITAL DIAGNOSTIC MAMMOGRAM WITH CAD, DIGITAL LEFT BREAST TOMOSYNTHESIS, AND LEFT BREAST SONOGRAM HISTORY: 44-year-old woman with an abnormal mammogram from another facility. Outside mammograms from [facility] dated 01/31/2014 and 02/02/2014 demonstrate a focal asymmetry in the outer left breast at the 3:00 to 4:00 position and a subcentimeter group of microcalcifications within the lower outer quadrant of the right breast. Also, the patient reports having a palpable lump of concern in her outer left breast at the 3 o'clock position. Bilateral diagnostic mammogram and directed left breast sonogram are requested by Dr. Briana Us, who is seeing the patient in breast surgery clinic today. MAMMOGRAM TECHNIQUE: Full field digital craniocaudal and mediolateral oblique views of both breasts and additional views were obtained on a total of 11 images. Digital left breast tomosynthesis was performed and reviewed as a part of this examination. Computer Aided Detection was performed with [employer]3 version 9.3. COMPARISON: Comparison is made with prior outside mammograms from [facility] dated 01/31/2014 and 02/02/2014. BREAST PARENCHYMAL COMPOSITION: The breasts are heterogeneously dense, which may obscure small masses. MAMMOGRAM FINDINGS: Within the outer left breast at the 3 o'clock position, middle to posterior depth, there is a mass measuring approximately 1.5 cm with associated architectural distortion and microcalcifications. Within the central lower outer quadrant of the left breast at the 4 o'clock position, posterior depth, there is a 0.9 cm mammographic mass. There is a subcentimeter group of heterogeneous microcalcifications in a linear distribution within the lower outer quadrant of the right breast at middle depth. SONOGRAM FINDINGS: This left breast sonogram is somewhat limited by the patient's inability to avoid moving during the course of the examination (due to reported back spasms and breast pain, and due to her difficulty with suppressing episodes of coughing during the course of the examination). Directed sonogram of the outer left breast was performed from approximately the one o'clock position to the 5 o'clock position. At the 3 o'clock position, corresponding with the patient's indicated palpable lump of concern, there is a 0.9 x 1.0 x 0.7 cm non-parallel, heterogeneous, hypoechoic mass. At the 4 o'clock position, corresponding with another palpable lump, there is a similar-appearing heterogeneous hypoechoic mass measuring 1.2 x 1.2 x at least 1.7 cm. These masses are highly suspicious for malignancy and the aggregate superior to inferior measurement of these 2 masses is at least 4.5 cm. Directed sonogram of the left axillary region demonstrates several lymph nodes with abnormal nodular cortical thickening. IMPRESSION: 1) Heterogeneous hypoechoic masses measuring at least 4.5 cm in aggregate within the outer left breast at the 3:00 to 4:00 position are highly suspicious for malignancy. Biopsy is recommended. 2) Several left axillary lymph nodes with abnormal nodular cortical thickening. If clinically indicated, ultrasound-guided fine needle aspiration biopsy can be utilized to evaluate for metastatic malignancy. 3) A subcentimeter group of indeterminate microcalcifications is seen within the lower outer quadrant of the right breast. Biopsy is recommended to evaluate for malignancy. These microcalcifications are amenable to stereotactic-guided core needle biopsy. 4) If one or more of the above biopsies demonstrates malignancy, then bilateral breast MRI should be considered. At the conclusion of the examination, the above findings and recommendations were discussed with the patient and with Dr. Briana Us, who is seeing the patient breast surgery clinic today. The patient was subsequently scheduled to return to the [facility] on 02/19/2014 at 11:00 a.m. for an ultrasound-guided core needle biopsy of one of the left breast masses, an ultrasound-guided fine needle aspiration biopsy of one of the morphologically abnormal left axillary lymph nodes, and a stereotactic-guided core needle biopsy of the indeterminate microcalcifications within the lower outer quadrant of the right breast. Left breast: BI-RADS Category 5: Highly suggestive of malignancy. Right breast: BI-RADS Category 4A: Suspicious abnormality. Low suspicion for malignancy. OVERALL FINAL ASSESSMENT: BI-RADS Category 5: Highly suggestive of malignancy. Requested By: Briana Us M.D. Dictated By: ARISTIDES SPRAGUE M.D. on Feb 16 2014 4:53P This document has been electronically signed by: ARISTIDES SPRAGUE M.D. on Feb 16 2014 4:53P us Historical Provider MD IMG MAMMO PROCEDURES Mariely l Result from Last 3 Months or Most Recently Relevant to Health Maintenance Insurance [facility] Advance Directives For more information, please contact: [phone] * Full Code (Latest Code Status on File) Date Activated Date Inactivated Comments 11/24/2021 12:28 PM 11/24/2021 8:26 PM * Full Code Date Activated Date Inactivated Comments 11/24/2021 12:28 PM 11/24/2021 12:28 PM Care Teams [employer] Specialist Relationship Specialty Start Date End Date Marlon Velasquez MD [address] [place] [address] PCP - General Family Medicine 11/28/19 Choco Raymond MD [address] [place] [address] Plastic Surgery 01/27/20 Jere Klein MD PhD [address] [place] [address] Medical Oncologist/Director [facility] 09/11/20 Abdulaziz Mohr MD [address] [facility] [facility] [place] [address] Surgeon Orthopedic Surgery 03/03/21
== END 2025-03-28 10:02 | disposition home or self-care (01) ==
LOC: ANHFOHIMG 10:02
PROVIDERS: PCP Family Medicine; Visit Provider Surgery
DX: M79.622 Pain in left upper arm (principal); T85.44XA Capsular contracture of breast implant, initial encounter; N64.4 Mastodynia
CPT/HCPCS: 76882